=== PATIENT | female | born 1965 | race Caucasian/White ===

== ENCOUNTER 2016-08-09 22:31 | Emergency (ER) | payer SELFPAY ==
[~2016-08-09] VITALS: Ht 154.9 cm
[2016-08-09 22:31] VITALS: Ht 154.9 cm
--- OUTSIDE RECORDS SUMMARY | 2016-08-09 22:36 | XMS REPORT | Continuity Of Care Document ---
Author Author [facility] Organization [facility] Address [address] [place] [address] Phone Care Team Providers Care Molder Machine Tender Name Role Phone RED KIDD, CLAUDIA Burt AT Unavailable ALVIN KIDD, MAURY Millan PP Results Lab Results Visit/Account #[id number] (December 05, 2012 6:16am - December 05, 2012 9:51am) Test Result Reported Date/Time COMPLETE BLOOD COUNT WITH DIFF WHITE BLOOD COUNT(4.0-11.0 10E3/UL) 7.3 10E3/UL December 05, 2012 7:02am RED BLOOD COUNT(3.80-5.20 10E6/UL) 3.85 10E6/UL December 05, 2012 7:02am HEMOGLOBIN(12.0-16.0 G/DL) 11.6 G/DL December 05, 2012 7:02am HEMATOCRIT(36.0-48.0 %) 35.0 % December 05, 2012 7:02am MEAN CORPUSCULAR VOLUME(80.0-100.0 FL) 90.9 FL December 05, 2012 7:02am MEAN CORPUSCULAR HEMOGLOBIN(27.0-34.0 PG) 30.1 PG December 05, 2012 7:02am MEAN CORPUSCULAR HGB CONC(33.0-37.0 G/DL) 33.1 G/DL December 05, 2012 7:02am RED CELL DISTRIBUTION WIDTH(11.0-15.0 %) 13.4 % December 05, 2012 7:02am 777-3: PLATELET COUNT(130-400 10E3/UL) 203 10E3/UL December 05, 2012 7:02am MEAN PLATELET VOLUME(7.4-11.0 FL) 9.1 FL December 05, 2012 7:02am NEUTROPHILS % (AUTO)(40-70 %) 63 % December 05, 2012 7:02am LYMPHOCYTES % (AUTO)(15-45 %) 30 % December 05, 2012 7:02am MONOCYTES % (AUTO)(2-10 %) 5 % December 05, 2012 7:02am EOSINOPHILS % (AUTO)(0-6 %) 2 % December 05, 2012 7:02am BASOPHILS % (AUTO)(0-1 %) 1 % December 05, 2012 7:02am IMMATURE GRANS % (AUTO)(0-0 %) 0 % December 05, 2012 7:02am NUCLEATED RBCS (AUTO)(0-0 %) 0 % December 05, 2012 7:02am NEUTROPHILS # (AUTO)(2.5-7.5 10E3/UL) 4.6 10E3/UL December 05, 2012 7:02am LYMPHOCYTES # (AUTO)(1.0-4.0 10E3/UL) 2.2 10E3/UL December 05, 2012 7:02am MONOCYTES # (AUTO)(0.2-0.8 10E3/UL) 0.3 10E3/UL December 05, 2012 7:02am EOSINOPHILS # (AUTO)(0.0-0.4 10E3/UL) 0.1 10E3/UL December 05, 2012 7:02am BASOPHILS # (AUTO)(0.0-0.2 10E3/UL) 0.0 10E3/UL December 05, 2012 7:02am IMMATURE GRANS # (AUTO)(0.0-0.0 10E3/UL) 0.0 10E3/UL December 05, 2012 7:02am DIFF TYPE AUTOMATED December 05, 2012 7:02am 52018-3: PROTHROMBIN TIME WITH INR PROTHROMBIN TIME(12.6-14.9 SEC) 11.9 SEC December 05, 2012 7:06am 34463-9: INR 0.90 Result Comments: INR reference interval applies to patients on anticoagulant therapy. Suggested INR therapeutic range for oral anticoagulant therapy: (Stabilized anticoagulated patients) Routine Therapy: 2.0 to 3.0 Recurrent Myocardial Infarction: 2.5 to 3.5 Mechanical Prosthetic Valves: 2.5 to 3.5 December 05, 2012 7:06am PARTIAL THROMBOPLASTIN TIME PARTIAL THROMBOPLASTIN TIME(22.2-37.4 SEC) 29.3 SEC December 05, 2012 7:07am D-DIMER D-DIMER(0.00-0.49 UG/ML) 1.13 UG/ML December 05, 2012 7:14am COMPLETE METABOLIC PROFILE GLUCOSE(70-110 MG/DL) 194 MG/DL December 05, 2012 7:18am BLOOD UREA NITROGEN(6-20 MG/DL) 10 MG/DL December 05, 2012 7:18am CREATININE(0.50-1.20 MG/DL) 0.47 MG/DL December 05, 2012 7:18am EST GLOMERULAR FILTRATION RATE(Greater than or equal to 60) Greater than or equal to 60 Result Comments: If the patient is of -[place] descent/extraction multiply the eGFR value by 1.212 to obtain the actual eGFR. >=60 mg/dL Normal 30-59 mg/dL Moderate Kidney Disease 15-29 mg/dL Severe Kidney Disease <15 mg/dL Kidney Failure If the patient is of -[place] descent/extraction multiply the eGFR value by 1.212 to obtain the actual eGFR. >=60 mg/dL Normal 30-59 mg/dL Moderate Kidney Disease 15-29 mg/dL Severe Kidney Disease <15 mg/dL Kidney Failure December 05, 2012 7:18am BUN CREATININE RATIO(10.0-20.0 RATIO) 21.3 RATIO December 05, 2012 7:18am SODIUM(135-145 MMOL/L) 140 MMOL/L December 05, 2012 7:18am POTASSIUM(3.6-5.0 MMOL/L) 3.3 MMOL/L December 05, 2012 7:18am CHLORIDE(101-111 MMOL/L) 104 MMOL/L December 05, 2012 7:18am CO2(21-31 MMOL/L) 24.0 MMOL/L December 05, 2012 7:18am ANION GAP(8-18) 15 December 05, 2012 7:18am OSMO CALCULATED(270.0-290.0) 283.7 December 05, 2012 7:18am CALCIUM(8.5-10.5 MG/DL) 9.4 MG/DL December 05, 2012 7:18am BILIRUBIN,TOTAL(0.1-1.2 MG/DL) 0.3 MG/DL December 05, 2012 7:18am ALKALINE PHOSPHATASE(42-121 U/L) 151 U/L December 05, 2012 7:18am ASPARTATE AMINO TRANSFERASE(10-42 U/L) 32 U/L December 05, 2012 7:18am ALANINE AMINOTRANSFERASE(10-60 U/L) 22 U/L December 05, 2012 7:18am TOTAL PROTEIN(6.4-8.2 G/DL) 7.6 G/DL December 05, 2012 7:18am ALBUMIN(3.5-5.5 G/DL) 4.1 G/DL December 05, 2012 7:18am GLOBULIN(2.4-3.6) 3.5 December 05, 2012 7:18am ALBUMIN/GLOBULIN RATIO(0.9-1.8 RATIO) 1.2 RATIO December 05, 2012 7:18am TOTAL CPK TOTAL CPK(22-269 U/L) 172 U/L December 05, 2012 7:18am CPK MB CPK MB(0.6-6.3 NG/ML) 1.0 NG/ML December 05, 2012 7:18am CARDIAC TROPONIN I CARDIAC TROPONIN I(0.01-0.04 NG/ML) 0.01 NG/ML Result Comments: REFERENCE RANGES: NEGATIVE </=0.04 NG/ML INTERMEDIATE 0.05-0.49 NG/ML POSITIVE >/=0.50 NG/ML December 05, 2012 7:18am Less than 0.01 NG/ML Result Comments: REFERENCE RANGES: NEGATIVE </=0.04 NG/ML INTERMEDIATE 0.05-0.49 NG/ML POSITIVE >/=0.50 NG/ML December 05, 2012 9:15am LIPASE LIPASE(22-51 U/L) 18 U/L December 05, 2012 7:38am Result Procedures Visit/Account #[id number] (December 05, 2012 6:16am - December 05, 2012 9:51am) Department: DIAGNOSTIC IMAGING [ Report: Diagnostic Imaging Report ] Diagnostic Imaging Report Dictated By: REFUGIO HARRIS MD Signed By: REFUGIO HARRIS MD Method of Transportation: A Pertinent Items in Place: N What ER Room is the patient in?: 23 Currently : N Reason for exam: r/o [address] [address] ~Department of Radiology~ Patient: CLARISA HIDALGO Unit/MR#: [id number] : 1965 Age: 47 Sex: F Report#: [id number] Room#: Location: ED Order Dr: CLAUDIA MOON MD Tech: Chris Beltran Attn: Dr: Signed CAT SCAN Dt/Tm of Exam: 12/05/12 0719 Exam Description: CT ANGIO CHEST Reason for Exam: r/o pe cc: CLAUDIA MOON MD, RHONDA D MD [facility] ~ CT PULMONARY ANGIOGRAM COMPARISON: None. Axial images were obtained through the chest from just below the apices to just above posterior costophrenic angles. Chest wall appears unremarkable. There is mild to moderate degenerative change of the spine. No pleural fluid or pneumothorax is evident. Aorta appears unremarkable. No aneurysm or dissection is evident. No mediastinal or hilar adenopathy or mass is identified. There are diffusely increased bronchovascular markings in both lungs suggesting vascular congestive change. No consolidation or mass is evident. Attention is directed to pulmonary arteries. Main pulmonary artery and right and left main pulmonary arteries appear normal. No filling defect is noted to suggest central pulmonary embolus. The peripheral pulmonary arteries appear unremarkable with no peripheral pulmonary embolus evident on the current study. Imaging is somewhat limited by patient's body habitus and poor inspiratory effort. IMPRESSION: Diffusely increased bronchovascular pattern markings accentuated by incomplete inspiration. Mild vascular congestion is likely. Negative for mass or consolidation. Apices and posterior lung bases are incompletely visualized. Negative for evidence of pulmonary emboli. [id number] Transcribed By: HARDIK 12/05/12 1001 Dictated By: REFUGIO HARRIS MD Signed By: REFUGIO HARRIS MD 12/05/12 1241 Diagnostic Imaging Report Dictated By: REFUGIO HARRIS MD Signed By: REFUGIO HARRIS MD Method of Transportation: A Pertinent Items in Place: N What ER Room is the patient in?: 23 Currently : N Reason for exam: Chest pain [address] [address] ~Department of Radiology~ Patient: CLARISA HIDALGO Unit/MR#: [id number] : 1965 Age: 47 Sex: F Report#: [id number] Room#: Location: ED Order Dr: CLAUDIA MOON MD Tech: Ava Pritchard Attn: Dr: Signed DIAGNOSTIC XRAY Dt/Tm of Exam: 12/05/12 0631 Exam Description: CR CHEST 1V Reason for Exam: Chest pain cc: CLAUDIA MOON MD, RHONDA D MD [facility] ~ PORTABLE CHEST COMPARISON: Exam is compared with 12/04/12. Upright AP portable view of the chest was obtained. Cardiac monitoring leads are in place. Heart is of normal size. Mediastinum and mikey are unremarkable. There is mild elevation of the right diaphragm. No pleural fluid or pneumothorax is evident. No infiltrate or mass is seen. No significant change is noted from previous imaging. IMPRESSION: Mild elevation of right diaphragm. No active process seen in the cardiopulmonary system. Stable imaging from 12/04/12. [id number] Transcribed By: HARDIK 12/05/12 1253 Dictated By: REFUGIO HARRIS MD Signed By: REFUGIO HARRIS MD 12/05/12 1756 Imaging is somewhat limited by patient's body habitus and poor inspiratory effort. IMPRESSION: Diffusely increased bronchovascular pattern markings accentuated by incomplete inspiration. Mild vascular congestion is likely. Negative for mass or consolidation. Apices and posterior lung bases are incompletely visualized. Negative for evidence of pulmonary emboli. [id number] Transcribed By: HARDIK 12/05/12 1001 Dictated By: REFUGIO HARRIS MD Signed By: REFUGIO HARRIS MD 12/05/12 1241 Allergies and Adverse Reactions Allergies and Adverse Reactions Patient Unit Number: [id number] Agent Type Reaction Severity Status Date KETOROLAC TROMETHAMINE Drug Allergy Unknown Unknown Active December 02, 2012 LISINOPRIL Drug Allergy Unknown Unknown Active December 02, 2012 MORPHINE Drug Allergy Unknown Unknown Active December 04, 2012 MEPERIDINE Drug Allergy Unknown Mild Active June 09, 2007 Problem List Problem List Visit/Account #[id number] (December 05, 2012 6:16am - December 05, 2012 9:51am) Active Problems: Code/Condition Comments Documented Start Date Documented Resolved Date 786.50 CHEST PAIN NOS December 05, 2012 789.09 ABDOMINAL PAIN, OTHER SPECIFIED SITE December 05, 2012 Vital Signs Vital Signs Visit/Account #[id number] (December 05, 2012 6:16am - December 05, 2012 9:51am) Label First Result Last Result 8310-5: Body Temperature 98.7 degF December 05, 2012 6:15am 8310-5: Fahrenheit Body Temperature 98.3 [degF] December 05, 2012 9:47am 8480-6: BP Systolic 182/ mmHg December 05, 2012 6:15am 81/ mm[Hg] December 05, 2012 9:46am 8867-4: Heart Rate 101 /min December 05, 2012 6:15am 93 /min December 05, 2012 9:46am 9279-1: Respiratory Rate 20 /min December 05, 2012 6:15am 15 /min December 05, 2012 9:46am Unmapped Query Mnemonic (RESP.SAT) Saturation 95 % December 05, 2012 6:15am 95 % December 05, 2012 6:15am Ordered Medications Ordered Medications Visit/Account #[id number] (December 05, 2012 6:16am - December 05, 2012 9:51am) Medication Dose Route Sig/Schedule Precondition/Indication Comments/ Instructions NDC NITROQUICK(NITROGLYCERIN) 0.4 MG/TAB TAB 0.4 MG SL: SUBLINGUAL NOW: NOW Rx Order Comments: Order placed as verified: Dose Warnings differ from food order expediter Dose Warnings differ from food order expediter Label Comments: *DOSE 1* Do NOT give until approved by physician. Give every 3-5 minutes if needed for ongoing symptons. Max of 3 doses. Do NOT give unless: Heart rate 50-100 beats per minute SBP is greater than 90 mmHg and/or no lower than 20 mmHg below baseline Do NOT give if: inferior OH or RV infarction recent phosphodesterase inhibito use (e.g. Viagra, Levitra, Revatio) within last 24 hours or Cialis within last 48 hours. NITROQUICK (NITROGLYCERIN): [id number] NITROQUICK(NITROGLYCERIN) 0.4 MG/TAB TAB 0.4 MG SL: SUBLINGUAL NOW: NOW Rx Order Comments: Order placed as verified: Allergies/Duplicates/Interactions differ from food order expediter Dose Warnings differ from food order expediter Label Comments: *DOSE 2* Give every 3-5 minutes if needed for ongoing symptons. Max of 3 doses. Do NOT give unless: Heart rate 50-100 beats per minute SBP is greater than 90 mmHg and/or no lower than 20 mmHg below baseline Do NOT give if: inferior OH or RV infarction recent phosphodesterase inhibito use (e.g. Viagra, Levitra, Revatio) within last 24 hours or Cialis within last 48 hours. NITROQUICK (NITROGLYCERIN): [id number] NITROQUICK(NITROGLYCERIN) 0.4 MG/TAB TAB 0.4 MG SL: SUBLINGUAL NOW: NOW Rx Order Comments: Order placed as verified: Allergies/Duplicates/Interactions differ from food order expediter Dose Warnings differ from food order expediter Label Comments: *DOSE 3* Give every 3-5 minutes if needed for ongoing symptons. Max of 3 doses. Do NOT give unless: Heart rate 50-100 beats per minute SBP is greater than 90 mmHg and/or no lower than 20 mmHg below baseline Do NOT give if: inferior [place] or RV infarction recent phosphodesterase inhibito use (e.g. Viagra, Levitra, Revatio) within last 24 hours or Cialis within last 48 hours. NITROQUICK (NITROGLYCERIN): [id number] MAALOX PLUS(AL HYDROX/MG HYDROX/SIMETH) 30 ML LIQUID 30 ML PO: ORAL NOW: NOW Rx Order Comments: Order placed as verified: Allergies/Duplicates/Interactions differ from food order expediter Dose Warnings differ from food order expediter Label Comments: GI COCKTAIL MAALOX PLUS (AL HYDROX/MG HYDROX/SIMETH): [id number] ELIX(BELLADONNA ALK/PHENOBARBITAL) 10 ML/32.4 MG ELIXIR 10 ML PO: ORAL NOW: NOW Rx Order Comments: Order placed as verified: Allergies/Duplicates/Interactions differ from food order expediter Dose Warnings differ from food order expediter Label Comments: GI COCKTAIL ELIX (BELLADONNA ALK/PHENOBARBITAL): [id number] XYLOCAINE 2% VISC(LIDOCAINE HCL) 400 MG/20 ML SOLUTION 200 MG PO: ORAL NOW: NOW Rx Order Comments: Order placed as verified: Allergies/Duplicates/Interactions differ from food order expediter Dose Warnings differ from food order expediter Label Comments: GI COCKTAIL XYLOCAINE 2% VISC (LIDOCAINE HCL): [id number] PROTONIX(PANTOPRAZOLE SOD) 40 MG TAB 40 MG PO: ORAL NOW: NOW Rx Order Comments: Order placed as verified: Allergies/Duplicates/Interactions differ from food order expediter Dose Warnings differ from food order expediter PROTONIX (PANTOPRAZOLE SOD): [id number] History Of Encounters Encounters Visit/Account #[id number] (December 05, 2012 6:16am - December 05, 2012 9:51am) No reports exist, or have been identified for inclusion with this encounter.
--- OUTSIDE RECORDS SUMMARY | 2016-08-09 22:36 | XMS REPORT | Continuity of Care Document ---
Author Author [facility] Organization [facility] Address Unknown Phone Unavailable Care Team Providers Care Health Specialist Name Role Phone Emily López PP [phone] Insurance Providers Payer Name Policy Type Covered Libertarian Covered Libertarian Id Relationship Subscriber Subscriber Id DAVIS [id number] BRYANNA HIDALGO [id number] [facility] [id number] SELF / SAME PATIENT CLARISA HIDALGO [id number] Advance Directives Directive Response Recorded Date/Time Type: Living Will 02/09/09 2:20am Problems Medical Problem Onset Date Abdominal pain Chest pain Chronic abdominal pain Diabetic gastroparesis Frontal headache Headache Social History History Response Recorded Date/Time 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, 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 02/09/09 2:20am Exposure to Occupational hazards: N 02/09 2:20am Allergies, Adverse Reactions, Alerts Allergen Type Severity Reaction Last Updated Ketorolac Allergy Unknown 12/03/12 Meperidine Allergy Unknown 12/03/12 Morphine AdvReac Mild VOMITING 12/03/12 Lisinopril Allergy Unknown 12/03/12 Medications Medication Dose Route Sig Days/Qty REGLAN 10MG10 MG/TAB (Metoclopramide) 10 MG PO BID PRILOSEC 20MG20 MG (Omeprazole) 20 MG PO QD KEPPRA [id number] MG (levETIRAcetam) 750 MG PO BID CARDURA 2MG2 MG (Doxazosin) 1 MG PO BID LOPRESSOR 550 MG/TAB (Metoprolol Tartrate) 50 MG PO BID ZYRTEC 10MG (3) 10 DAILY PIQQTPN51 MG (Atorvastatin) 20 MG PO HS [id number] MG/CAP (Gabapentin) 400 MG PO QID EFFEXOR-XR150 MG (Venlafaxine XR) 150 MG PO DAILY NOVLOG (Insulin Aspart) 4 U SC Q 1HR SYNTHROID0.125 MG/T (Levothyroxine) 0.125 MG PO DAILY ANAFRANIL 25MG25 MG (clomiPRAMINE) 75 MG PO HS [id number] MG (Topiramate) 200 MG PO QD Vital Signs Vital Reading Collection Date/Time Result Blood Pressure 12/03/12 3:38am 155/70 Ortho 12/03/12 3:38am SI Temperature 12/03/12 2:02am 97.7 Source 12/03/12 2:02am O Respirations 12/03/12 3:38am 18 Pulse 12/03/12 3:38am 80 Type 12/03/12 2:02am PO SPO2 (%) 12/03/12 3:38am 96 Height(cm) 12/03/12 2:02am 154.9 Height(ft) 12/03/12 2:02am 5 Height(in) 12/03/12 2:02am 01 Weight(Kg) 12/03/12 2:02am 99.5 Weight(lbs) 12/03/12 2:02am 219.0 Blood Pressure 12/01/12 9:16am 149/70 Ortho 12/01/12 9:16am DE PAZ Temperature 12/01/12 4:02am 99.1 Source 12/01/12 4:02am O Respirations 12/01/12 4:02am 16 Pulse 12/01/12 4:02am 84 Type 12/01/12 4:02am PO SPO2 (%) 12/01/12 4:02am 94 Height(cm) 11/13/12 3:19am 154.9 Height(ft) 12/01/12 4:02am 5 Height(in) 12/01/12 4:02am 1 Weight(Kg) 12/01/12 4:02am 100.0 Weight(lbs) 12/01/12 4:02am 220.0 Blood Pressure 11/13/12 5:16am 141/93 Ortho 11/13/12 5:16am DE PAZ Temperature 11/13/12 3:19am 97.0 Source 11/13/12 3:19am O Respirations 11/13/12 5:16am 16 Pulse 11/13/12 5:16am 85 Type 11/13/12 5:16am DYN SPO2 (%) 11/13/12 5:16am 95 Height(cm) 11/13/12 3:19am 154.9 Height(ft) 11/13/12 3:19am 5 Height(in) 11/13/12 3:19am 1 Weight(Kg) 11/13/12 3:19am 100.0 Weight(lbs) 11/13/12 3:19am 220.0 Blood Pressure 11/10/12 9:37pm 141/76 Ortho 11/10/12 9:37pm SI Temperature 11/10/12 9:37pm 98.6 Source 11/10/12 9:37pm O Respirations 11/10/12 9:37pm 14 Pulse 11/10/12 9:37pm 87 Type 11/10/12 9:37pm PO SPO2 (%) 11/10/12 9:37pm 95 Height(cm) 11/10/12 8:10pm 154.9 Height(ft) 11/10/12 8:10pm 5 Height(in) 11/10/12 8:10pm 01 Weight(Kg) 11/10/12 8:10pm 100.0 Weight(lbs) 11/10/12 8:10pm 220.0 Blood Pressure 11/10/12 8:47am 136/63 Ortho 11/10/12 8:47am DE PAZ Temperature 11/10/12 8:47am 97.8 Source 11/10/12 8:47am O Respirations 11/10/12 8:47am 16 Pulse 11/10/12 8:47am 92 Type 11/10/12 8:47am PO SPO2 (%) 11/10/12 8:47am 95 Height(cm) 11/10/12 7:01am 154.9 Height(ft) 11/10/12 7:01am 5 Height(in) 11/10/12 7:01am 1 Weight(Kg) 11/10/12 7:01am 100.0 Weight(lbs) 11/10/12 7:01am 220.0 Blood Pressure 11/09/12 8:33pm 115/67 Ortho 11/09/12 8:33pm SI Temperature 11/09/12 8:33pm 98.7 Source 11/09/12 8:33pm O Respirations 11/09/12 8:33pm 16 Pulse 11/09/12 8:33pm 80 Type 11/09/12 8:33pm PO SPO2 (%) 11/09/12 8:33pm 95 Height(cm) 11/09/12 8:33pm 154.9 Height(ft) 11/01/12 7:14am 5 Height(in) 11/09/12 8:33pm 61 Weight(Kg) 11/09/12 8:33pm 100.0 Weight(lbs) 11/09/12 8:33pm 220.0 Results Test Date Result Interp. Ref. Range Cholesterol Level 08/23/08 189 mg/dL 120 - 200 Cholesterol Risk Factor 08/23/08 4.7 - HDL Cholesterol 08/23/08 40 mg/dL - LDL Cholesterol, Calculated 08/23/08 77 mg/dL - Triglycerides Level 08/23/08 362 mg/dL - INR International Normalized Ratio 08/23/08 1.1 0 - 2.0 Partial Thromboplastin Time - [place] 08/23/08 23.9 SECONDS 18.0 - 35.0 Prothrombin Time 08/23/08 10.8 SECONDS 9.8 - 12.2 Heparin Anti-Xa Act, Unfractionated 08/23/08 0.16 IU/mL L 0.35 - 0.70 Troponin I 08/23/08 < 0.012 ng/mL 0.000 - 0.034 Hemoglobin A1c 08/23/08 6.6 % - B-Type Natriuretic Peptide 08/24/08 5 pg/ mL 0 - 100 CSF Neisseria meningitidis A/Y Ag 04/07/12 NEGATIVE - Group B Streptococcus Antigen 04/07/12 NEGATIVE - N. meningitidis B/E.coli K1 Ag 04/07/12 NEGATIVE - Neisseria meningitidis C/W135 Ag 04/07/12 NEGATIVE - Streptococcus pneumoniae Antigen 04/07/12 NEGATIVE - CSF Appearance 04/07/12 CLEAR - CSF Cell Count Tube # 04/07/12 TUBE #1 - CSF Color 04/07/12 OTHER - CSF Glucose 04/07/12 109 mg/dL H 40 - 70 CSF Mononuclear WBCs % 04/07/12 67 % L 70 - 100 CSF Polynuclear WBCs (%) 04/07/12 33 % H 0 - 6 CSF RBC 04/07/12 1200 /mm3 H 0 - 0 CSF Total Protein 04/07/12 63.2 mg/dL H 12 - 60 CSF WBC 04/07/12 4 MM3 0 - 10 Carbamazepine (Tegretol) Level 05/27/12 12.7 ug/mL H 4.0 - 12.0 Influenza Type A Antigen 06/03/12 NEGATIVE - Influenza Type B Antigen 06/03/12 NEGATIVE - Band Neutrophils % 06/03/12 14 % H 0 - 10 Differential Pathologist's Review 06/03/12 NO - Differential Total Cells Counted 06/03/12 100 - Eosinophils % (Manual) 06/03/12 2 % 0 - 4 Lymphocytes 06/03/12 22 % 20.0 - 51.0 Monocytes % (Manual) 06/03/12 3.0 % 1.7 - 9.3 Neutrophils % (Manual) 06/03/12 59 % 42.0 - 75.2 Platelet Estimate 06/03/12 NORMAL NORMAL - Magnesium Level 06/03/12 1.6 mg/dL 1.6 - 2.3 Creatine Kinase 08/09/12 35 U/L 30 - 135 Creatine Kinase MB 08/09/12 < 0.30 ng/mL 0.00 - 2.37 Acetone, Qualitative 09/03/12 NEGATIVE - Whole Blood Glucose 09/14/12 120 mg/dL H 70 - 110 Urine Mucus 10/27/12 PRESENT H NOT PRESENT - Stool Occult Blood 10/29/12 NEGATIVE NEGATIVE - Levetiracetam (Keppra) Level 11/10/12 XXX - Prolactin 11/10/12 XXX - Rapid Troponin I 11/13/12 <0.02 ng/mL 0.00 - 0.08 Lactic Acid Level 11/13/12 2.10 mmol/L 0.7 - 2.1 C-Reactive Protein 12/01/12 2.4 mg/dL H 0.0 - 0.9 Urine Appearance 12/01/12 HAZY - Urine Bacteria 12/01/12 PRESENT H NOT PRESENT - Urine Bilirubin 12/01/12 NEGATIVE NEGATIVE - Urine Blood 12/01/12 NEGATIVE NEGATIVE - Urine Collection Type 12/01/12 CLEAN CATCH - Urine Color 12/01/12 YELLOW - Urine Epithelial Cells 12/01/12 MANY / lpf H FEW - Urine Glucose 12/01/12 NEGATIVE mg/dL - Urine Ketones 12/01/12 NEGATIVE NEGATIVE - Urine Leukocyte Esterase 12/01/12 NEGATIVE NEGATIVE - Urine Nitrate 12/01/12 NEGATIVE NEGATIVE - Urine Protein 12/01/12 NEGATIVE mg/dL NEGATIVE - Urine RBC 12/01/12 0-3 /hpf 0 - 3 Urine Specific [place] 12/01/12 1.010 1.001 - 1.035 Urine Total Volume 12/01/12 12 mL - Urine Urobilinogen 12/01/12 NORMAL NORMAL - Urine WBC 12/01/12 4-8 /hpf H 0 - 3 Urine pH 12/01/12 7.0 5.0 - 8.0 Basophils # 12/03/12 0.1 0.0 - 0.2 Basophils % 12/03/12 0.7 % 0.0 - 2.0 Eosinophils # 12/03/12 0.2 0.0 - 0.7 Eosinophils % 12/03/12 1.6 % 0 - 4.0 Granulocytes # 12/03/12 7.0 H 1.4 - 6.5 Granulocytes (%) 12/03/12 66.2 % 42.2 - 75.2 Hematocrit 12/03/12 33.2 % L 37.0 - 47.0 Hemoglobin 12/03/12 11.2 g/dl L 12.5 - 16.0 Lymphocytes # 12/03/12 3.0 1.2 - 3.4 Lymphocytes % 12/03/12 28.0 % 20.0 - 51.0 Mean Corpuscular Hemoglobin 12/03/12 31 pg 27.0 - 31.0 Mean Corpuscular Hemoglobin Concent 12/03/12 34 g/dl 33.0 - 37.0 Mean Corpuscular Volume 12/03/12 91 fl 80.0 - 100.0 Mean Platelet Volume 12/03/12 7.9 fl 7.4 - 10.4 Monocytes # 12/03/12 0.4 0.1 - 0.6 Monocytes % 12/03/12 3.5 % 1.7 - 9.3 Platelet Count 12/03/12 216 K/mm3 130 - 400 Red Blood Count 12/03/12 3.63 M/mm3 L 4.10 - 5.30 Red Cell Distribution Width 12/03/12 13.4 % 11.5 - 14.5 White Blood Count 12/03/12 10.7 K/mm3 4.8 - 10.8 Alanine Aminotransferase (ALT/SGPT) 12/03/12 25 U/L 9 - 52 Albumin 12/03/12 4.2 gm/dL 3.5 - 5.0 Alkaline Phosphatase 12/03/12 171 U/L H 50 - 136 Anion Gap 12/03/12 17 mmol/L H 7 - 16 Aspartate Amino Transf (AST/SGOT) 12/03/12 48 U/L H 15 - 37 Blood Urea Nitrogen 12/03/12 11 mg/dL 7 - 18 Calcium Adjusted for Albumin 12/03/12 8.5 mg/dL 8.4 - 10.2 Calcium Level 12/03/12 8.7 mg/dL L 8.8 - 10.5 Carbon Dioxide Level 12/03/12 20 mmol/L L 21 - 32 Chloride Level 12/03/12 105 mmol/L 98 - 107 Creatinine 12/03/12 0.56 mg/dL 0.52 - 1.04 Estimated GFR () 12/03/12 142 - Estimated GFR (Non- 12/03/12 117 - Glucose Level 12/03/12 154 mg/dL H 74 - 106 Lipase 12/03/12 43 U/L 23 - 300 Potassium Level 12/03/12 4.6 mmol/L 3.4 - 5.0 Serum Total Protein 12/03/12 7.6 gm/dL 6.4 - 8.2 Sodium Level 12/03/12 142 mmol/L 136 - 145 Total Bilirubin 12/03/12 0.5 mg/dL 0.0 - 1.0 Procedures Procedure Code Date UPPER GI ENDOSCOPY, BIOPSY 68015 [facility] En[facility] 11/09/12 10:20pm
--- OUTSIDE RECORDS SUMMARY | 2016-08-09 22:36 | XMS REPORT | Continuity Of Care Document ---
Author Author [facility] Organization [facility] Address [address] [place] [address] Phone Care Team Providers Care Seo Consultant Name Role Phone AMY KIDD, ADWOA Rich AT Results Lab Results Visit/Account #[id number] (December 02, 2012 5:04am - December 02, 2012 7:37am) Test Result Reported Date/Time COMPLETE BLOOD COUNT WITH DIFF WHITE BLOOD COUNT(4.0-11.0 10E3/UL) 8.7 10E3/UL December 02, 2012 6:15am RED BLOOD COUNT(3.80-5.20 10E6/UL) 3.91 10E6/UL December 02, 2012 6:15am HEMOGLOBIN(12.0-16.0 G/DL) 11.9 G/DL December 02, 2012 6:15am HEMATOCRIT(36.0-48.0 %) 35.7 % December 02, 2012 6:15am MEAN CORPUSCULAR VOLUME(80.0-100.0 FL) 91.3 FL December 02, 2012 6:15am MEAN CORPUSCULAR HEMOGLOBIN(27.0-34.0 PG) 30.4 PG December 02, 2012 6:15am MEAN CORPUSCULAR HGB CONC(33.0-37.0 G/DL) 33.3 G/DL December 02, 2012 6:15am RED CELL DISTRIBUTION WIDTH(11.0-15.0 %) 13.2 % December 02, 2012 6:15am 777-3: PLATELET COUNT(130-400 10E3/UL) 214 10E3/UL December 02, 2012 6:15am MEAN PLATELET VOLUME(7.4-11.0 FL) 8.9 FL December 02, 2012 6:15am NEUTROPHILS % (AUTO)(40-70 %) 60 % December 02, 2012 6:15am LYMPHOCYTES % (AUTO)(15-45 %) 32 % December 02, 2012 6:15am MONOCYTES % (AUTO)(2-10 %) 5 % December 02, 2012 6:15am EOSINOPHILS % (AUTO)(0-6 %) 2 % December 02, 2012 6:15am BASOPHILS % (AUTO)(0-1 %) 1 % December 02, 2012 6:15am IMMATURE GRANS % (AUTO)(0-0 %) 1 % December 02, 2012 6:15am NUCLEATED RBCS (AUTO)(0-0 %) 0 % December 02, 2012 6:15am NEUTROPHILS # (AUTO)(2.5-7.5 10E3/UL) 5.2 10E3/UL December 02, 2012 6:15am LYMPHOCYTES # (AUTO)(1.0-4.0 10E3/UL) 2.8 10E3/UL December 02, 2012 6:15am MONOCYTES # (AUTO)(0.2-0.8 10E3/UL) 0.4 10E3/UL December 02, 2012 6:15am EOSINOPHILS # (AUTO)(0.0-0.4 10E3/UL) 0.2 10E3/UL December 02, 2012 6:15am BASOPHILS # (AUTO)(0.0-0.2 10E3/UL) 0.1 10E3/UL December 02, 2012 6:15am IMMATURE GRANS # (AUTO)(0.0-0.0 10E3/UL) 0.0 10E3/UL December 02, 2012 6:15am DIFF TYPE AUTOMATED December 02, 2012 6:15am 96379-9: PROTHROMBIN TIME WITH INR PROTHROMBIN TIME(12.6-14.9 SEC) 12.2 SEC December 02, 2012 6:31am 50485-7: INR 0.93 Result Comments: INR reference interval applies to patients on anticoagulant therapy. Suggested INR therapeutic range for oral anticoagulant therapy: (Stabilized anticoagulated patients) Routine Therapy: 2.0 to 3.0 Recurrent Myocardial Infarction: 2.5 to 3.5 Mechanical Prosthetic Valves: 2.5 to 3.5 December 02, 2012 6:31am PARTIAL THROMBOPLASTIN TIME PARTIAL THROMBOPLASTIN TIME(22.2-37.4 SEC) 30.3 SEC December 02, 2012 6:32am UA WITH SCREEN FOR CULTURE COLOR,URINE YELLOW December 02, 2012 7:00am CLARITY,URINE CLEAR December 02, 2012 7:00am GLUCOSE, URINE(NEGATIVE MG/DL) NEGATIVE MG/DL December 02, 2012 7:00am URINE BILIRUBIN(NEGATIVE) NEGATIVE December 02, 2012 7:00am KETONES,URINE(NEGATIVE MG/DL) NEGATIVE MG/DL December 02, 2012 7:00am URINE SPECIFIC GRAVITY(1.001-1.035) 1.020 December 02, 2012 7:00am URINE BLOOD(NEGATIVE) NEGATIVE December 02, 2012 7:00am URINE PH(5.0-9.0) 7.0 December 02, 2012 7:00am URINE PROTEIN(Less than 20 MG/DL) NEGATIVE MG/DL December 02, 2012 7:00am URINE UROBILINOGEN(0.2-1.0 MG/DL) 0.2 MG/DL December 02, 2012 7:00am URINE NITRITE(NEGATIVE) NEGATIVE December 02, 2012 7:00am LEUKOCYTE ESTERASE ,URINE(NEGATIVE) TRACE December 02, 2012 7:00am URINE CULTURE TO FOLLOW December 02, 2012 7:00am URINE MICROSCOPIC REQUIRED YES December 02, 2012 7:00am URINE WBCS(/HPF) 8-12 /HPF December 02, 2012 7:14am URINE RBCS(/HPF) NONE SEEN /HPF December 02, 2012 7:14am URINE EPITHELIAL CELLS(/HPF) 4-7 /HPF December 02, 2012 7:14am BACTERIA,URINE(/HPF) NONE SEEN /HPF December 02, 2012 7:14am URINE CRYSTALS(/HPF) NONE SEEN /HPF December 02, 2012 7:03am URINE CASTS(/LPF) NONE SEEN /LPF December 02, 2012 7:03am URINE COMMENTS NONE December 02, 2012 7:03am COMPLETE METABOLIC PROFILE GLUCOSE(70-110 MG/DL) 123 MG/DL Result Comments: SPECIMEN IS SLIGHTLY TO MODERATELY LIPEMIC;RESULTS MAY BE AFFECTED December 02, 2012 6:36am BLOOD UREA NITROGEN(6-20 MG/DL) 13 MG/DL December 02, 2012 6:36am CREATININE(0.50-1.20 MG/DL) 0.54 MG/DL December 02, 2012 6:36am EST GLOMERULAR FILTRATION RATE(Greater than or equal to 60) Greater than or equal to 60 Result Comments: If the patient is of -[place] descent/extraction multiply the eGFR value by 1.212 to obtain the actual eGFR. >=60 mg/dL Normal 30-59 mg/dL Moderate Kidney Disease 15-29 mg/dL Severe Kidney Disease <15 mg/dL Kidney Failure December 02, 2012 6:36am BUN CREATININE RATIO(10.0-20.0 RATIO) 24.1 RATIO December 02, 2012 6:36am SODIUM(135-145 MMOL/L) 138 MMOL/L December 02, 2012 6:36am POTASSIUM(3.6-5.0 MMOL/L) 3.6 MMOL/L December 02, 2012 6:36am CHLORIDE(101-111 MMOL/L) 105 MMOL/L December 02, 2012 6:36am CO2(21-31 MMOL/L) 22.0 MMOL/L December 02, 2012 6:36am ANION GAP(8-18) 15 December 02, 2012 6:36am OSMO CALCULATED(270.0-290.0) 277.1 December 02, 2012 6:36am CALCIUM(8.5-10.5 MG/DL) 9.2 MG/DL December 02, 2012 6:36am BILIRUBIN,TOTAL(0.1-1.2 MG/DL) 0.3 MG/DL December 02, 2012 6:36am ALKALINE PHOSPHATASE(42-121 U/L) 140 U/L December 02, 2012 6:36am ASPARTATE AMINO TRANSFERASE(10-42 U/L) 28 U/L December 02, 2012 6:36am ALANINE AMINOTRANSFERASE(10-60 U/L) 21 U/L December 02, 2012 6:36am TOTAL PROTEIN(6.4-8.2 G/DL) 7.7 G/DL December 02, 2012 6:36am ALBUMIN(3.5-5.5 G/DL) 4.6 G/DL December 02, 2012 6:36am GLOBULIN(2.4-3.6) 3.1 December 02, 2012 6:36am ALBUMIN/GLOBULIN RATIO(0.9-1.8 RATIO) 1.5 RATIO December 02, 2012 6:36am LIPASE LIPASE(22-51 U/L) 22 U/L December 02, 2012 6:36am SERUM HCG, QUALITATIVE SERUM HCG, QUALITATIVE(NEGATIVE) NEGATIVE December 02, 2012 6:35am Microbiology Results Visit/Account #[id number] (December 02, 2012 5:04am - December 02, 2012 7:37am) Procedure Result Specimen #: [id number] URINE CULTURE Result Instance On December 05, 2012 7:52am Source: URINE Organism: MIXED UROGENITAL ORGANISMS COLONY COUNT >100,000 Result Procedures Visit/Account #[id number] (December 02, 2012 5:04am - December 02, 2012 7:37am) Department: DIAGNOSTIC IMAGING [ Report: Diagnostic Imaging Report ] Diagnostic Imaging Report Dictated By: WHITNEY LEIJA MD Signed By: WHITNEY LEIJA MD Method of Transportation: A Pertinent Items in Place: N What ER Room is the patient in?: 23 Currently : N Reason for exam: abd pain;colonoscopy 3 days ago with biopsies taken [address] [id number] ~Department of Radiology~ Patient: CLARISA HIDALGO Unit/MR#: [id number] : 1965 Age: 47 Sex: F Report#: [id number] Room#: Location: ED Order Dr: ADWOA REYES MD Tech: William Gonzalez Attn: Dr: Signed DIAGNOSTIC XRAY Dt/Tm of Exam: 12/02/12 Exam Description: CR ABDOMEN 2V Reason for Exam: abd pain;colonoscopy 3 days ago with biopsies taken cc: ADWOA REYES MD [facility] ~ EXAM: Two-view abdominal series. LOCATION OF DICTATION: [facility]. HISTORY: Abdominal pain/rectal bleeding/colonoscopy 3 days earlier. COMPARISON: None. FINDINGS: Clips are evident in the right upper quadrant consistent with a prior cholecystectomy. No organomegaly or pathological calcification is evident. Small amount of contrast material is seen within the colon. The intestinal gas pattern is nonspecific, suggesting neither mechanical obstruction nor ileus. No intramural, intrahepatic or free intraperitoneal air is evident. Pacer is present. IMPRESSION: 1. The intestinal gas pattern is nonspecific, suggesting neither mechanical obstruction nor ileus. 2. Status post cholecystectomy. Transcribed By: SPEECHQ 12/02/12 0754 Dictated By: WHITNEY LEIJA MD Signed By: WHITNEY LEIJA MD 12/02/12 0807 Allergies and Adverse Reactions Allergies and Adverse Reactions Patient Unit Number: [id number] Agent Type Reaction Severity Status Date KETOROLAC TROMETHAMINE Drug Allergy Unknown Unknown Active December 02, 2012 LISINOPRIL Drug Allergy Unknown Unknown Active December 02, 2012 MORPHINE Drug Allergy Unknown Unknown Active December 04, 2012 MEPERIDINE Drug Allergy Unknown Mild Active June 09, 2007 Problem List Problem List Visit/Account #[id number] (December 02, 2012 5:04am - December 02, 2012 7:37am) Active Problems: Code/Condition Comments Documented Start Date Documented Resolved Date 789.09 ABDOMINAL PAIN, OTHER SPECIFIED SITE December 02, 2012 V45.89 POSTSURGICAL STATES NEC December 02, 2012 Vital Signs Vital Signs Visit/Account #[id number] (December 02, 2012 5:04am - December 02, 2012 7:37am) Label First Result Last Result 3141-9: Weight Measured 220 lbs December 02, 2012 5:03am 99.296874 kg December 02, 2012 5:03am 8310-5: Body Temperature 97.3 degF December 02, 2012 5:03am 8310-5: Fahrenheit Body Temperature 98.2 [degF] December 02, 2012 7:33am 8480-6: BP Systolic 177/ mmHg December 02, 2012 5:03am 104/ mm[Hg] December 02, 2012 7:33am 8867-4: Heart Rate 89 /min December 02, 2012 5:03am 89 /min December 02, 2012 7:33am 9279-1: Respiratory Rate 22 /min December 02, 2012 5:03am 20 /min December 02, 2012 7:33am Unmapped Query Mnemonic (RESP.SAT) Saturation 97 % December 02, 2012 5:03am 97 % December 02, 2012 5:03am Home Medications Home Medications Visit/Account #[id number] (December 02, 2012 5:04am - December 02, 2012 7:37am) Medication Dose Route Sig/Schedule Precondition/Indication Comments/ Instructions NDC ATIVAN(LORazepam) 0.5 MG TABLET 0.5 MG PO: ORAL TID: 3 TIMES A DAY ATIVAN (LORazepam): [id number] Ordered Medications Ordered Medications Visit/Account #[id number] (December 02, 2012 5:04am - December 02, 2012 7:37am) Medication Dose Route Sig/Schedule Precondition/Indication Comments/ Instructions NDC ATIVAN INJ(LORazepam) 2 MG/ML INJECTION 1 MG IV: INTRAVEN NOW: NOW Rx Order Comments: Order placed as verified: Dose Warnings differ from computerized mill mill recorder Dose Warnings differ from computerized mill mill recorder Label Comments: *DILUTE WITH EQUAL VOLUME OF NORMAL SALINE PRIOR TO IV ADMINISTRATION MAY INCREASE FALL RISK ATIVAN INJ (LORazepam): [id number] MORPHINE SULFATE 10 MG/ML INJECTION 8 MG IV: INTRAVEN NOW: NOW Rx Order Comments: Order placed as verified: Dose Warnings differ from computerized mill mill recorder Dose Warnings differ from computerized mill mill recorder Label Comments: MAY INCREASE FALL RISK (MORPHINE SULFATE): [id number] ZOFRAN ODT(ONDansetron HCL) 4 MG TAB 4 MG PO: ORAL NOW: NOW Rx Order Comments: Order placed as verified: Dose Warnings differ from computerized mill mill recorder Dose Warnings differ from computerized mill mill recorder Label Comments: MAY INCREASE FALL RISK ZOFRAN ODT (ONDansetron HCL): [id number] PHENERGAN(PROMETHazine HCL) 25 MG TAB 25 MG PO: ORAL NOW: NOW Rx Order Comments: Order placed as verified: Dose Warnings differ from computerized mill mill recorder Dose Warnings differ from computerized mill mill recorder Label Comments: MAY INCREASE FALL RISK PHENERGAN (PROMETHazine HCL): [id number] DILAUDID(HYDROmorphone HCL) 2 MG/ML INJECTION 1 MG IM: INTRAMUSC NOW: NOW Rx Order Comments: Order placed as verified: Dose Warnings differ from computerized mill mill recorder Dose Warnings differ from computerized mill mill recorder Label Comments: MAY INCREASE FALL RISK DILAUDID (HYDROmorphone HCL): [id number] ATIVAN INJ(LORazepam) 2 MG/ML INJECTION 1 MG IM: INTRAMUSC NOW: NOW Rx Order Comments: Order placed as verified: Dose Warnings differ from computerized mill mill recorder Dose Warnings differ from computerized mill mill recorder Label Comments: *DILUTE WITH EQUAL VOLUME OF NORMAL SALINE PRIOR TO IV ADMINISTRATION MAY INCREASE FALL RISK ATIVAN INJ (LORazepam): [id number] History Of Encounters Encounters Visit/Account #[id number] (December 02, 2012 5:04am - December 02, 2012 7:37am) No reports exist, or have been identified for inclusion with this encounter.
--- OUTSIDE RECORDS SUMMARY | 2016-08-09 22:37 | XMS REPORT | Continuity Of Care Document ---
Author Author [facility] Organization [facility] Address [address] [place] [address] Phone Care Team Providers Care Tooth Cutter Clutch Name Role Phone RED KIDD, CLAUDIA Burt AT MAURY ESQUIVEL MD PP Results Lab Results Visit/Account #[id number] (June 25, 2013 10:40pm - June 26, 2013 1: 25am) Test Result Reported Date/Time COMPLETE BLOOD COUNT WITH DIFF WHITE BLOOD COUNT(4.0-11.0 10E3/UL) 9.6 10E3/UL June 26, 2013 12:29am RED BLOOD COUNT(3.80-5.20 10E6/UL) 3.83 10E6/UL June 26, 2013 12:29am HEMOGLOBIN(12.0-16.0 G/DL) 11.8 G/DL June 26, 2013 12:29am HEMATOCRIT(36.0-48.0 %) 34.2 % June 26, 2013 12:29am MEAN CORPUSCULAR VOLUME(80.0-100.0 FL) 89.3 FL June 26, 2013 12:29am MEAN CORPUSCULAR HEMOGLOBIN(27.0-34.0 PG) 30.8 PG June 26, 2013 12:29am MEAN CORPUSCULAR HGB CONC(33.0-37.0 G/DL) 34.5 G/DL June 26, 2013 12:29am RED CELL DISTRIBUTION WIDTH(11.0-15.0 %) 13.8 % June 26, 2013 12:29am 777-3: PLATELET COUNT(130-400 10E3/UL) 203 10E3/UL June 26, 2013 12:29am MEAN PLATELET VOLUME(7.4-11.0 FL) 9.1 FL June 26, 2013 12:29am NEUTROPHILS % (AUTO)(40-70 %) 64 % June 26, 2013 12:29am LYMPHOCYTES % (AUTO)(15-45 %) 29 % June 26, 2013 12:29am MONOCYTES % (AUTO)(2-10 %) 4 % June 26, 2013 12:29am EOSINOPHILS % (AUTO)(0-6 %) 2 % June 26, 2013 12:29am BASOPHILS % (AUTO)(0-1 %) 0 % June 26, 2013 12:29am IMMATURE GRANS % (AUTO)(0-0 %) 1 % June 26, 2013 12:29am NUCLEATED RBCS (AUTO)(0-0 %) 0 % June 26, 2013 12:29am NEUTROPHILS # (AUTO)(2.5-7.5 10E3/UL) 6.1 10E3/UL June 26, 2013 12:29am LYMPHOCYTES # (AUTO)(1.0-4.0 10E3/UL) 2.8 10E3/UL June 26, 2013 12:29am MONOCYTES # (AUTO)(0.2-0.8 10E3/UL) 0.4 10E3/UL June 26, 2013 12:29am EOSINOPHILS # (AUTO)(0.0-0.4 10E3/UL) 0.2 10E3/UL June 26, 2013 12:29am BASOPHILS # (AUTO)(0.0-0.2 10E3/UL) 0.0 10E3/UL June 26, 2013 12:29am IMMATURE GRANS # (AUTO)(0.0-0.0 10E3/UL) 0.1 10E3/UL June 26, 2013 12:29am DIFF TYPE AUTOMATED June 26, 2013 12:29am COMPLETE METABOLIC PROFILE GLUCOSE(70-110 MG/DL) 148 MG/DL June 26, 2013 12:49am BLOOD UREA NITROGEN(6-20 MG/DL) 10 MG/DL June 26, 2013 12:49am CREATININE(0.50-1.20 MG/DL) 0.50 MG/DL June 26, 2013 12:49am EST GLOMERULAR FILTRATION RATE(Greater than or equal to 60) Greater than or equal to 60 Result Comments: If the patient is of -[place] descent/extraction multiply the eGFR value by 1.212 to obtain the actual eGFR. >=60 mg/dL Normal 30-59 mg/dL Moderate Kidney Disease 15-29 mg/dL Severe Kidney Disease <15 mg/dL Kidney Failure June 26, 2013 12:49am BUN CREATININE RATIO(10.0-20.0 RATIO) 20.0 RATIO June 26, 2013 12:49am SODIUM(135-145 MMOL/L) 134 MMOL/L June 26, 2013 12:49am POTASSIUM(3.6-5.0 MMOL/L) 3.2 MMOL/L June 26, 2013 12:49am CHLORIDE(101-111 MMOL/L) 96 MMOL/L June 26, 2013 12:49am CO2(21-31 MMOL/L) 28.0 MMOL/L June 26, 2013 12:49am ANION GAP(8-18) 13 June 26, 2013 12:49am OSMO CALCULATED(270.0-290.0) 270.0 June 26, 2013 12:49am CALCIUM(8.5-10.5 MG/DL) 8.8 MG/DL June 26, 2013 12:49am BILIRUBIN,TOTAL(0.1-1.2 MG/DL) 0.5 MG/DL June 26, 2013 12:49am ALKALINE PHOSPHATASE(42-121 U/L) 170 U/L June 26, 2013 12:49am ASPARTATE AMINO TRANSFERASE(10-42 U/L) 26 U/L June 26, 2013 12:49am ALANINE AMINOTRANSFERASE(10-60 U/L) 26 U/L June 26, 2013 12:49am TOTAL PROTEIN(6.4-8.2 G/DL) 7.8 G/DL June 26, 2013 12:49am ALBUMIN(3.5-5.5 G/DL) 3.5 G/DL June 26, 2013 12:49am GLOBULIN(2.4-3.6) 4.3 June 26, 2013 12:49am ALBUMIN/GLOBULIN RATIO(0.9-1.8 RATIO) 0.8 RATIO June 26, 2013 12:49am LIPASE LIPASE(22-51 U/L) 19 U/L June 26, 2013 12:49am Allergies and Adverse Reactions Allergies and Adverse Reactions Patient Unit Number: [id number] Agent Type Reaction Severity Status Date KETOROLAC TROMETHAMINE Drug Allergy Unknown Unknown Active December 02, 2012 LISINOPRIL Drug Allergy Unknown Unknown Active December 02, 2012 MORPHINE Drug Allergy Unknown Unknown Active December 04, 2012 MEPERIDINE Drug Allergy Unknown Mild Active June 09, 2007 Vital Signs Vital Signs Visit/Account #[id number] (June 25, 2013 10:40pm - June 26, 2013 1: 25am) Label First Result Last Result 3141-9: Weight Measured 231 lbs June 25, 2013 10:33pm 104.834642 kg June 25, 2013 10:33pm 8310-5: Body Temperature 99.1 degF June 25, 2013 10:33pm 8310-5: Fahrenheit Body Temperature 98.2 [degF] June 26, 2013 1:15am 8480-6: BP Systolic 159/ mmHg June 25, 2013 10:33pm 70/ mm[Hg] June 26, 2013 1:15am 8867-4: Heart Rate 93 /min June 25, 2013 10:33pm 68 /min June 26, 2013 1:15am 9279-1: Respiratory Rate 20 /min June 25, 2013 10:33pm 18 /min June 26, 2013 1:15am Unmapped Query Mnemonic (RESP.SAT) Saturation 96 % June 25, 2013 10:33pm 96 % June 25, 2013 10:33pm Ordered Medications Ordered Medications Visit/Account #[id number] (June 25, 2013 10:40pm - June 26, 2013 1: 25am) Medication Dose Route Sig/Schedule Precondition/Indication Comments/ Instructions NDC DILAUDID(HYDROmorphone HCL) 2 MG/ML INJECTION 0.5 MG IV: INTRAVEN NOW: NOW Rx Order Comments: Order placed as verified: Dose Warnings differ from order analyst Dose Warnings differ from order analyst Label Comments: MAY INCREASE FALL RISK DILAUDID (HYDROmorphone HCL): [id number] ZOFRAN INJ(ONDansetron HCL) 4 MG/2 ML INJECTION 4 MG .ROUTE: Route .[facility] ZOFRAN INJ (ONDansetron HCL): [id number] History Of Encounters Encounters Visit/Account #[id number] (June 25, 2013 10:40pm - June 26, 2013 1: 25am) No reports exist, or have been identified for inclusion with this encounter.
--- OUTSIDE RECORDS SUMMARY | 2016-08-09 22:37 | XMS REPORT | Continuity Of Care Document ---
Author Author [facility] Organization [facility] Address [address] [place] [address] Phone Care Team Providers [facility] Director Name Role Phone Yana ESQUIVEL MD PP Alok COTO MD AT Results Lab Results Visit/Account #[id number] (July 25, 2015 7:14am - July 28, 2015 10:30am) Test Result Date/Time POCGL POCGL(70-110 MG/DL) 185 MG/DL 2015 7:27am 157 MG/DL 2015 10:20am 120 MG/DL 2015 5:40pm 129 MG/DL 2015 7:59pm 86 MG/DL July 25, 2015 6:04am 76 MG/DL July 25, 2015 10:32am 214 MG/DL July 25, 2015 5:32pm 268 MG/DL July 25, 2015 7:37pm 64 MG/DL July 26, 2015 6:15am 73 MG/DL July 26, 2015 6:31am 134 MG/DL July 26, 2015 7:58am 179 MG/DL July 26, 2015 9:40am 177 MG/DL July 26, 2015 11:10am 121 MG/DL July 26, 2015 4:30pm 81 MG/DL July 26, 2015 8:58pm 62 MG/DL July 27, 2015 3:26am 92 MG/DL July 27, 2015 3:52am 148 MG/DL July 27, 2015 5:51am 141 MG/DL July 27, 2015 11:48am 114 MG/DL July 27, 2015 2:38pm 140 MG/DL July 27, 2015 5:14pm 327 MG/DL July 27, 2015 9:23pm 345 MG/DL July 27, 2015 10:35pm 281 MG/DL July 27, 2015 11:38pm 116 MG/DL July 28, 2015 5:28am COMPLETE BLOOD COUNT WHITE BLOOD COUNT(4.0-11.0 10E3/UL) 9.0 10E3/UL July 25, 2015 8:21am 9.3 10E3/UL July 26, 2015 5:57am RED BLOOD COUNT(4.00-5.20 10E6/UL) 3.87 10E6/UL July 25, 2015 8:21am 4.25 10E6/UL July 26, 2015 5:57am HEMOGLOBIN(12.0-16.0 G/DL) 11.8 G/DL July 25, 2015 8:21am 12.7 G/DL July 26, 2015 5:57am HEMATOCRIT(36.0-46.0 %) 34.8 % July 25, 2015 8:21am 37.4 % July 26, 2015 5:57am MEAN CORPUSCULAR VOLUME(82.0-100.0 FL) 89.9 FL July 25, 2015 8:21am 88.0 FL July 26, 2015 5:57am 68093-8: MEAN CORPUSCULAR HEMOGLOBIN(26.0-34.0 PG) 30.5 PG July 25, 2015 8:21am 29.9 PG July 26, 2015 5:57am MEAN CORPUSCULAR HGB CONC(31.5-36.5 G/DL) 33.9 G/DL July 25, 2015 8:21am 34.0 G/DL July 26, 2015 5:57am RED CELL DISTRIBUTION WIDTH(11.5-14.5 %) 14.2 % July 25, 2015 8:21am 14.1 % July 26, 2015 5:57am 777-3: PLATELET COUNT(150-450 10E3/UL) 148 10E3/UL July 25, 2015 8:21am 149 10E3/UL July 26, 2015 5:57am MEAN PLATELET VOLUME(8.2-12.4 FL) 9.6 FL July 25, 2015 8:21am 10.2 FL July 26, 2015 5:57am NUCLEATED RBCS (AUTO)(0-0 %) 0 % July 25, 2015 8:21am 0 % July 26, 2015 5:57am HEMOGLOBIN HEMOGLOBIN(12.0-16.0 G/DL) 11.8 G/DL July 25, 2015 6:16pm 52309-1: PROTHROMBIN TIME WITH INR PROTHROMBIN TIME(12.1-14.0 SEC) 13.3 SEC July 25, 2015 8:20am 20827-0: INR 1.05 Result Comments: INR reference interval applies to patients on anticoagulant therapy. Suggested INR therapeutic range for oral anticoagulant therapy: (Stabilized anticoagulated patients) Routine Therapy: 2.0 to 3.0 Recurrent Myocardial Infarction: 2.5 to 3.5 Mechanical Prosthetic Valves: 2.5 to 3.5 July 25, 2015 8:20am PARTIAL THROMBOPLASTIN TIME PARTIAL THROMBOPLASTIN TIME(22.2-37.4 SEC) 33.3 SEC July 25, 2015 8:20am 62836-1: COMPLETE METABOLIC PROFILE GLUCOSE(70-110 MG/DL) 91 MG/DL July 25, 2015 8:21am BLOOD UREA NITROGEN(6-20 MG/DL) 8 MG/DL July 25, 2015 8:21am CREATININE(0.50-1.20 MG/DL) 0.51 MG/DL July 25, 2015 8:21am 93163-9: EST GLOMERULAR FILTRATION RATE(Greater than or equal to 60) Greater than or equal to 60 Result Comments: If the patient is of -[place] descent/extraction multiply the eGFR value by 1.212 to obtain the actual eGFR. >=60 mg/dL Normal 30-59 mg/dL Moderate Kidney Disease 15-29 mg/dL Severe Kidney Disease <15 mg/dL Kidney Failure July 25, 2015 8:21am BUN CREATININE RATIO(10.0-20.0 RATIO) 16.0 RATIO July 25, 2015 8:21am SODIUM(135-145 MMOL/L) 139 MMOL/L July 25, 2015 8:21am POTASSIUM(3.6-5.0 MMOL/L) 3.3 MMOL/L July 25, 2015 8:21am CHLORIDE(101-111 MMOL/L) 102 MMOL/L July 25, 2015 8:21am 8-9: CO2(21-31 MMOL/L) 28 MMOL/L July 25, 2015 8:21am ANION GAP(8-18) 12 July 25, 2015 8:21am OSMO CALCULATED(270.0-290.0) 275.5 July 25, 2015 8:21am CALCIUM(8.5-10.5 MG/DL) 8.5 MG/DL July 25, 2015 8:21am BILIRUBIN,TOTAL(0.1-1.2 MG/DL) 0.5 MG/DL July 25, 2015 8:21am ALKALINE PHOSPHATASE(42-121 IU/L) 150 IU/L July 25, 2015 8:21am ASPARTATE AMINO TRANSFERASE(10-42 IU/L) 33 IU/L July 25, 2015 8:21am ALANINE AMINOTRANSFERASE(10-60 IU/L) 20 IU/L July 25, 2015 8:21am TOTAL PROTEIN(6.4-8.2 G/DL) 6.8 G/DL July 25, 2015 8:21am ALBUMIN(3.5-5.5 G/DL) 3.7 G/DL July 25, 2015 8:21am GLOBULIN(2.4-3.6) 3.1 July 25, 2015 8:21am ALBUMIN/GLOBULIN RATIO(0.9-1.8 RATIO) 1.2 RATIO July 25, 2015 8:21am 12705-0: GLYCOHEMOGLOBIN A1C 4548-4: %A1C(4.6-6.2 %) 11.4 % 2015 3:56pm Microbiology Results Visit/Account #[id number] (July 25, 2015 7:14am - July 28, 2015 10:30am) Procedure Result TISSUE CULTURE TISSUE CULTURE Result Instance On July 25, 2015 11:40am Source: LIVER Special Result Comments: No growth Allergies and Adverse Reactions Allergies and Adverse Reactions Patient Unit Number: [id number] Agent Type Reaction Severity Status KETOROLAC TROMETHAMINE Drug Allergy Unknown Unknown Active LISINOPRIL Drug Allergy Unknown Unknown Active MEPERIDINE Drug Allergy Unknown Mild Active Problem List Problem List Visit/Account #[id number] (July 25, 2015 7:14am - July 28, 2015 10:30am) Acute Problems: Code/Condition Comments Documented Start Date Documented Resolved Date Code (s) Abdominal pain ICD10: R10.9 Abdominal pain ICD9: 789.00 Abdominal pain SNOMED: 12189151 Abdominal pain Liver mass ICD10: K76.9 Liver mass ICD9: 573.9 Liver mass SNOMED: 882383418 Liver mass Plan of Care Plan Of Care Visit/Account #[id number] (July 25, 2015 7:14am - July 28, 2015 10:30am) Patient Instructions Instructions Polyethylene Glycol 3350 Oxycodone Levofloxacin Hydrocodone Vital Signs Vital Signs Visit/Account #[id number] (July 25, 2015 7:14am - July 28, 2015 10:30am) Sign First Result Last Result Code(s) Blood Pressure 143/ 76 mm[Hg] On 2015 2:08am 122/ 67 mm[Hg] On July 28, 2015 9:55am 8480-6 BP Systolic Heart Rate/Pulse Pulse Rate (adult): 74 /min On 2015 2:08am Pulse Rate (adult): 99 /min On July 28, 2015 9:55am 8867-4 Heart Rate 8893-0 Pulse rate Respiratory Rate Respiratory Rate: 16 /min On 2015 2:08am Respiratory Rate: 18 /min On July 28, 2015 9:55am 9279-1 Respiratory rate Temperature in Fahrenheit Temperature (Fahrenheit): 97.3 [degF] On 2015 2:08am Temperature (Fahrenheit): 98.6 [degF] On July 28, 2015 9:55am 8310-5 Body Temperature Functional Status Functional and Cognitive Status No Functional Status Data Medications Home Medications - Medications that the patient was taking prior to arrival at the hospital Visit/Account #[id number] (July 25, 2015 7:14am - July 28, 2015 10:30am) Medication Route Sig/Schedule Precondition/Indication Comments/Instructions Codes ATIVAN(LORazepam) 0.5 MG TABLET Dose: 0.5 MG ORAL 3 TIMES A DAY Lorazepam 0.5 MG Oral Tablet (RxNorm): 063847 ATIVAN (LORazepam) NDC: 44358083880 NEURONTIN(GABAPENTIN) 400 MG CAPSULE Dose: 400 MG ORAL DAILY AT [facility] gabapentin 400 MG Oral Capsule [Neurontin] (RxNorm): 113747 NEURONTIN (GABAPENTIN) NDC: 24719671990 REGLAN(METOCLOPRAMIDE HCL) 10 MG TABLET Dose: 10 MG ORAL TWICE A DAY Metoclopramide 10 MG Oral Tablet [Reglan] (RxNorm): 735423 REGLAN (METOCLOPRAMIDE HCL) NDC: 82534891158 ZYRTEC(CETIRIZINE HCL) 10 MG CAPSULE Dose: 10 MG ORAL DAILY ZYRTEC (CETIRIZINE HCL) NDC: 33489557409 KEPPRA(LevETIRAcetam) 750 MG TAB Dose: 750 MG ORAL TWICE A DAY Levetiracetam 750 MG Oral Tablet [Keppra] (RxNorm): 574610 KEPPRA (LevETIRAcetam) NDC: 61214517475 LIPITOR(ATORVASTATIN) 80 MG TABLET Dose: 80 MG ORAL AT BEDTIME atorvastatin 80 MG Oral Tablet [Lipitor] (RxNorm): 115426 LIPITOR (ATORVASTATIN) NDC: 92899620465 SYNTHROID(LEVOTHYROXINE SODIUM) 0.125 MG TABLET Dose: 0.125 MG ORAL DAILY Levothyroxine Sodium 0.125 MG Oral Tablet [Synthroid] (RxNorm): 093498 SYNTHROID (LEVOTHYROXINE SODIUM) NDC: 94048261174 TOPAMAX(TOPIRAMATE) 100 MG TABLET Dose: 200 MG ORAL AT BEDTIME topiramate 100 MG Oral Tablet [Topamax] (RxNorm): 649825 TOPAMAX (TOPIRAMATE) NDC: 82143251047 CARDURA(DOXAZOSIN MESYLATE) 2 MG TABLET Dose: 1 MG ORAL TWICE A DAY Doxazosin 2 MG Oral Tablet [Cardura] (RxNorm): 886863 CARDURA (DOXAZOSIN MESYLATE) NDC: 27177696313 LEXAPRO(ESCITALOPRAM OXALATE) 20 MG TAB Dose: 20 MG ORAL DAILY Escitalopram 20 MG Oral Tablet [Lexapro] (RxNorm): 307400 LEXAPRO (ESCITALOPRAM OXALATE) NDC: 02273543813 IMDUR ER(ISOSORBIDE MONONITRATE) 30 MG TAB Dose: 30 MG ORAL DAILY 24 HR Isosorbide Mononitrate 30 MG Extended Release Oral Tablet (RxNorm): 154260 IMDUR ER (ISOSORBIDE MONONITRATE) NDC: 44425419320 PROTONIX(PANTOPRAZOLE) 40 MG TAB Dose: 40 MG ORAL DAILY pantoprazole 40 MG Delayed Release Oral Tablet [Protonix] (RxNorm): 364067 PROTONIX (PANTOPRAZOLE) NDC: 70484376263 REMERON(MIRTAZAPINE) 30 MG TABLET Dose: 30 MG ORAL AT BEDTIME Mirtazapine 30 MG Oral Tablet [Remeron] (RxNorm): 504873 REMERON (MIRTAZAPINE) NDC: 64508841593 BUSPAR(BusPIRone) 5 MG TAB Dose: 10 MG ORAL TWICE A DAY buspirone hydrochloride 5 MG Oral Tablet (RxNorm): 013638 BUSPAR (BusPIRone) NDC: 98012740460 NOVOLOG(INSULIN ASPART) 1000 UNIT/10 ML INJECTION Dose: 0 ML SUBCUTANEOUSLY .PER.PUMP Rx Instructions: patient reports 4.7-4.95 units per hour, and that she has a 15/1 carb ratio with meals Insulin, Aspart, Human 100 UNT/ML Injectable Solution [NovoLog] (RxNorm): 554344 NOVOLOG (INSULIN ASPART) NDC: 68678533165 NEURONTIN(GABAPENTIN) 400 MG CAPSULE Dose: 400 MG ORAL DAILY AT LUNCH gabapentin 400 MG Oral Capsule [Neurontin] (RxNorm): 831392 NEURONTIN (GABAPENTIN) NDC: 54983263310 NEURONTIN(GABAPENTIN) 400 MG CAPSULE Dose: 800 MG ORAL AT BEDTIME gabapentin 400 MG Oral Capsule [Neurontin] (RxNorm): 212196 NEURONTIN (GABAPENTIN) NDC: 87924787949 ATIVAN(LORazepam) 0.5 MG TABLET Dose: 0.5 MG ORAL TWICE A DAY prn Lorazepam 0.5 MG Oral Tablet [Ativan] (RxNorm): 853083 ATIVAN (LORazepam) NDC: 64162060592 LOPRESSOR(METOPROLOL TARTRATE) 50 MG TABLET Dose: 50 MG ORAL TWICE A DAY Metoprolol Tartrate 50 MG Oral Tablet [Lopressor] (RxNorm): 261701 LOPRESSOR (METOPROLOL TARTRATE) NDC: 49852612139 Inpatient/Ordered Medications - Medications administered during hospital visit Visit/Account #[id number] (July 25, 2015 7:14am - July 28, 2015 10:30am) Medication Route Sig/Schedule Precondition/Indication Comments/Instructions Codes LIPITOR(ATORVASTATIN) 80 MG TAB Dose: 80 MG ORAL AT BEDTIME Label Comments: TERATOGENIC. WOMEN SHOULD NOT HANDLE OR CRUSH. atorvastatin 80 MG Oral Tablet [Lipitor] (RxNorm): 361113 LIPITOR (ATORVASTATIN) NDC: 89766906645 BUSPAR(BusPIRone) 5 MG TAB Dose: 5 MG ORAL TWICE A DAY Label Comments: MAY INCREASE FALL RISK buspirone hydrochloride 5 MG Oral Tablet (RxNorm): 047325 BUSPAR (BusPIRone) NDC: 04558578341 CARDURA(DOXAZOSIN MESYLATE) 2 MG TAB Dose: 2 MG ORAL TWICE A DAY Label Comments: MAY INCREASE FALL RISK Doxazosin 2 MG Oral Tablet (RxNorm): 630209 CARDURA (DOXAZOSIN MESYLATE) NDC: 30026990289 LEXAPRO(ESCITALOPRAM OXALATE) 20 MG TAB Dose: 20 MG ORAL DAILY Label Comments: MAY INCREASE FALL RISK Escitalopram 20 MG Oral Tablet [Lexapro] (RxNorm): 310282 LEXAPRO (ESCITALOPRAM OXALATE) NDC: 27958929085 NEURONTIN(GABAPENTIN) 400 MG CAP Dose: 400 MG ORAL DAILY Label Comments: MAY INCREASE FALL RISK gabapentin 400 MG Oral Capsule [Neurontin] (RxNorm): 319092 NEURONTIN (GABAPENTIN) NDC: 07799769758 IMDUR-ER(ISOSORBIDE MONONITRATE) 30 MG TAB Dose: 30 MG ORAL DAILY 24 HR Isosorbide Mononitrate 30 MG Extended Release Oral Tablet (RxNorm): 166520 IMDUR-ER (ISOSORBIDE MONONITRATE) NDC: 09826669006 KEPPRA(LevETIRAcetam) 750 MG TAB Dose: 750 MG ORAL TWICE A DAY Label Comments: DO NOT CRUSH MAY INCREASE FALL RISK Levetiracetam 750 MG Oral Tablet [Keppra] (RxNorm): 191870 KEPPRA (LevETIRAcetam) NDC: 17443135236 SYNTHROID(LEVOTHYROXINE SODIUM) 0.125 MG TAB Dose: 0.125 MG ORAL DAILY@07 Label Comments: 0.125 ZF=739 MCG Levothyroxine Sodium 0.125 MG Oral Tablet (RxNorm): 714774 SYNTHROID (LEVOTHYROXINE SODIUM) NDC: 80330923980 REMERON(MIRTAZAPINE) 30 MG TAB Dose: 30 MG ORAL AT BEDTIME Label Comments: MAY INCREASE FALL RISK Mirtazapine 30 MG Oral Tablet (RxNorm): 034837 REMERON (MIRTAZAPINE) NDC: 67103440462 PROTONIX(PANTOPRAZOLE SOD) 40 MG TAB Dose: 40 MG ORAL 60 MIN BEFORE BKFST pantoprazole 40 MG Delayed Release Oral Tablet [Protonix] (RxNorm): 737552 PROTONIX (PANTOPRAZOLE SOD) NDC: 53096326975 TOPAMAX(TOPIRAMATE) 100 MG TAB Dose: 200 MG ORAL AT BEDTIME Label Comments: MAY INCREASE FALL RISK topiramate 100 MG Oral Tablet (RxNorm): 850352 TOPAMAX (TOPIRAMATE) NDC: 12905801587 CLARITIN(LORATADINE) 10 MG TAB Dose: 10 MG ORAL DAILY Label Comments: SUBST FOR ZYRTEC Loratadine 10 MG Oral Tablet (RxNorm): 404141 CLARITIN (LORATADINE) NDC: 76132366135 IV Medication Carriers: LR(LACTATED RINGER'S) 1000 ML INJECTION Dose: 1000 ML INTRAVEN .Q10H (Rate: 100 MLS/HR Duration: 10 HR) Carriers: Calcium Chloride 0.0014 MEQ/ML / Potassium Chloride 0.004 MEQ/ML / Sodium Chloride 0.103 MEQ (RxNorm): 390585 LR (LACTATED RINGER'S) NDC: 04183468463 NORCO 7.5-325(HYDROcodone BIT/ACETAMINOPHEN) 1 TAB TAB Dose: 0 TAB ORAL Q6H PRN Reason: MODERATE PAIN Label Comments: Do not exceed 4000 mg of total acetaminophen per 24 hours Special Dose Instructions: 1-2 TABS Acetaminophen 325 MG / Hydrocodone Bitartrate 7.5 MG Oral Tablet (RxNorm): 323924 NORCO 7.5-325 (HYDROcodone BIT/ACETAMINOPHEN) NDC: 02515534008 DILAUDID(HYDROmorphone HCL) 2 MG/ML INJECTION Dose: 0 ML INTRAVEN Q1H PRN Reason: SEVERE PAIN Special Dose Instructions: 0.5-1 MG 1 ML Hydromorphone Hydrochloride 2 MG/ML Prefilled Syringe (RxNorm): 217693 DILAUDID (HYDROmorphone HCL) NDC: 49153301517 ZOFRAN INJ(ONDANSETRON HCL) 4 MG/2 ML INJECTION Dose: 2 ML INTRAVEN Q6H PRN Reason: NAUSEA/VOMITING Ondansetron 2 MG/ML Injectable Solution (RxNorm): 548365 ZOFRAN INJ (ONDANSETRON HCL) NDC: 41949095881 BENADRYL INJ(DiphenhydrAMINE HCL) 50 MG/ML INJECTION Dose: 0.5 ML INTRAVEN Q6H PRN Reason: ITCHING Diphenhydramine Hydrochloride 50 MG/ML Injectable Solution (RxNorm): 1857574 BENADRYL INJ (DiphenhydrAMINE HCL) NDC: 56354957154 COLACE(DOCUSATE SODIUM) 100 MG CAP Dose: 100 MG ORAL TWICE A DAY Docusate Sodium 100 MG Oral Capsule (RxNorm): 1455609 COLACE (DOCUSATE SODIUM) NDC: 84952426588 NovoLOG(INSULIN ASPART) 1000 UNIT/10 ML INJECTION Dose: 0 ML SUBCUTANEOUSLY 3 TIMES DAILY WITH MEALS Special Dose Instructions: 1 UNIT PER 15 GRAMS OF CARBS CORRECTION/SENSITIVITY FACTOR: Insulin, Aspart, Human 100 UNT/ML Injectable Solution [NovoLog] (RxNorm): 155266 NovoLOG (INSULIN ASPART) NDC: 26495150139 NovoLOG(INSULIN ASPART) 1000 UNIT/10 ML INJECTION Dose: 0 ML SUBCUTANEOUSLY NEEDED PRN Reason: RESERVOIR CHANGE Label Comments: Document amount refilled in reservoir on the insulin pump assessment.<rapid acting insulin> Special Dose Instructions: RESERVOIR CHANGE Insulin, Aspart, Human 100 UNT/ML Injectable Solution [NovoLog] (RxNorm): 816944 NovoLOG (INSULIN ASPART) NDC: 20521240533 DILAUDID(HYDROmorphone HCL) 2 MG/ML INJECTION Dose: 2 MG Route .STK-MED Label Comments: MAY INCREASE FALL RISK 1 ML Hydromorphone Hydrochloride 2 MG/ML Prefilled Syringe (RxNorm): 698679 DILAUDID (HYDROmorphone HCL) NDC: 89609052956 REGLAN(METOCLOPRAMIDE HCL) 10 MG TAB Dose: 10 MG ORAL TWICE A DAY Label Comments: MAY INCREASE FALL RISK Metoclopramide 10 MG Oral Tablet (RxNorm): 103549 REGLAN (METOCLOPRAMIDE HCL) NDC: 00364616126 DILAUDID(HYDROmorphone HCL) 2 MG/ML INJECTION Dose: 0 ML INTRAVEN Q2H PRN Reason: SEVERE PAIN Label Comments: MAY INCREASE FALL RISK Special Dose Instructions: 1-2 MG 1 ML Hydromorphone Hydrochloride 2 MG/ML Prefilled Syringe (RxNorm): 982609 DILAUDID (HYDROmorphone HCL) NDC: 78372585634 OxyCONTIN(OxyCODONE HCL) 20 MG TAB Dose: 20 MG ORAL TWICE A DAY Label Comments: MAY INCREASE FALL RISK 12 HR Oxycodone Hydrochloride 20 MG Extended Release Oral Tablet [Oxycontin] ( RxNorm): 1945190 OxyCONTIN (OxyCODONE HCL) NDC: 30131277149 LASIX INJ(FUROSEMIDE) 20 MG/2 ML INJECTION Dose: 2 ML INTRAVEN NOW Label Comments: MAY INCREASE FALL RISK 2 ML Furosemide 10 MG/ML Injection (RxNorm): 5608143 LASIX INJ (FUROSEMIDE) NDC: 54411820219 TYLENOL(ACETAMINOPHEN) 325 MG TAB Dose: 650 MG ORAL EVERY 6 HOURS FEVER Label Comments: DO NOT EXCEED 4000 MG PER 24 HR Acetaminophen 325 MG Oral Tablet (RxNorm): 568693 TYLENOL (ACETAMINOPHEN) NDC: 30480752760 IV Medication Carriers: LEVAQUIN 500 MG/100 ML(LEVOFLOXACIN/DEXTROSE) 500 MG/100 ML INJECTION Dose: 100 ML INTRAVEN Q24H (Rate: 100 MLS/HR Duration: 1 HR) Clinical Indication: ABX non-surgical pt Label Comments: Expires 24 HRS after package opened Carriers: 100 ML Levofloxacin 5 MG/ML Injection (RxNorm): 2558136 LEVAQUIN 500 MG/100 ML (LEVOFLOXACIN/DEXTROSE) NDC: 78190139217 MOTRIN(IBUPROFEN) 600 MG TAB Dose: 600 MG ORAL Q6H fever, pain Label Comments: TAKE WITH FOOD OR MILK Ibuprofen 600 MG Oral Tablet (RxNorm): 803030 MOTRIN (IBUPROFEN) NDC: 35966271478 OxyCONTIN(OxyCODONE HCL) 40 MG TAB Dose: 40 MG ORAL TWICE A DAY Label Comments: MAY INCREASE FALL RISK 12 HR Oxycodone Hydrochloride 40 MG Extended Release Oral Tablet [Oxycontin] ( RxNorm): 0187706 OxyCONTIN (OxyCODONE HCL) NDC: 10364969412 LEVAQUIN(LEVOFLOXACIN) 500 MG TAB Dose: 500 MG ORAL DAILY@10 Label Comments: Take 2 hrs before or after antacids, sucralfate, metal cations(iron), or multi-vitamins Levofloxacin 500 MG Oral Tablet [Levaquin] (RxNorm): 814082 LEVAQUIN (LEVOFLOXACIN) NDC: 02148909364 MIRALAX(POLYETHYLENE GLYCOL) 17 GM POWDER Dose: 17 GM ORAL DAILY Label Comments: DISSOLVE IN 8 OZ OF WATER POLYETHYLENE GLYCOL 3350 142 MG/ML Oral Solution [Miralax] (RxNorm): 915107 MIRALAX (POLYETHYLENE GLYCOL) NDC: 71794303289 Discharge Medications - Medications that patient should continue to take. Review with physician Visit/Account #[id number] (July 25, 2015 7:14am - July 28, 2015 10:30am) Medication Route Sig/Schedule Precondition/Indication Comments/Instructions Codes NEURONTIN(GABAPENTIN) 400 MG CAPSULE Dose: 400 MG ORAL DAILY AT [facility] gabapentin 400 MG Oral Capsule [Neurontin] (RxNorm): 896507 NEURONTIN (GABAPENTIN) NDC: 81115032948 REGLAN(METOCLOPRAMIDE HCL) 10 MG TABLET Dose: 10 MG ORAL TWICE A DAY Metoclopramide 10 MG Oral Tablet [Reglan] (RxNorm): 055457 REGLAN (METOCLOPRAMIDE HCL) NDC: 23023723316 ZYRTEC(CETIRIZINE HCL) 10 MG CAPSULE Dose: 10 MG ORAL DAILY ZYRTEC (CETIRIZINE HCL) NDC: 30596012067 KEPPRA(LevETIRAcetam) 750 MG TAB Dose: 750 MG ORAL TWICE A DAY Levetiracetam 750 MG Oral Tablet [Keppra] (RxNorm): 407357 KEPPRA (LevETIRAcetam) NDC: 16981777534 LIPITOR(ATORVASTATIN) 80 MG TABLET Dose: 80 MG ORAL AT BEDTIME atorvastatin 80 MG Oral Tablet [Lipitor] (RxNorm): 046125 LIPITOR (ATORVASTATIN) NDC: 40938507893 SYNTHROID(LEVOTHYROXINE SODIUM) 0.125 MG TABLET Dose: 0.125 MG ORAL DAILY Levothyroxine Sodium 0.125 MG Oral Tablet [Synthroid] (RxNorm): 115857 SYNTHROID (LEVOTHYROXINE SODIUM) NDC: 92584696734 TOPAMAX(TOPIRAMATE) 100 MG TABLET Dose: 200 MG ORAL AT BEDTIME topiramate 100 MG Oral Tablet [Topamax] (RxNorm): 997690 TOPAMAX (TOPIRAMATE) NDC: 75834991367 CARDURA(DOXAZOSIN MESYLATE) 2 MG TABLET Dose: 1 MG ORAL TWICE A DAY Doxazosin 2 MG Oral Tablet [Cardura] (RxNorm): 633141 CARDURA (DOXAZOSIN MESYLATE) NDC: 69509191863 LEXAPRO(ESCITALOPRAM OXALATE) 20 MG TAB Dose: 20 MG ORAL DAILY Escitalopram 20 MG Oral Tablet [Lexapro] (RxNorm): 566020 LEXAPRO (ESCITALOPRAM OXALATE) NDC: 30980419167 IMDUR ER(ISOSORBIDE MONONITRATE) 30 MG TAB Dose: 30 MG ORAL DAILY 24 HR Isosorbide Mononitrate 30 MG Extended Release Oral Tablet (RxNorm): 884335 IMDUR ER (ISOSORBIDE MONONITRATE) NDC: 34050131245 PROTONIX(PANTOPRAZOLE) 40 MG TAB Dose: 40 MG ORAL DAILY pantoprazole 40 MG Delayed Release Oral Tablet [Protonix] (RxNorm): 348091 PROTONIX (PANTOPRAZOLE) NDC: 76649081664 REMERON(MIRTAZAPINE) 30 MG TABLET Dose: 30 MG ORAL AT BEDTIME Mirtazapine 30 MG Oral Tablet [Remeron] (RxNorm): 259541 REMERON (MIRTAZAPINE) NDC: 59296794802 BUSPAR(BusPIRone) 5 MG TAB Dose: 10 MG ORAL TWICE A DAY buspirone hydrochloride 5 MG Oral Tablet (RxNorm): 515636 BUSPAR (BusPIRone) NDC: 52467167079 NOVOLOG(INSULIN ASPART) 1000 UNIT/10 ML INJECTION Dose: 0 ML SUBCUTANEOUSLY .PER.PUMP Rx Instructions: patient reports 4.7-4.95 units per hour, and that she has a 15/1 carb ratio with meals Insulin, Aspart, Human 100 UNT/ML Injectable Solution [NovoLog] (RxNorm): 321801 NOVOLOG (INSULIN ASPART) NDC: 44391582010 NEURONTIN(GABAPENTIN) 400 MG CAPSULE Dose: 400 MG ORAL DAILY AT [facility] gabapentin 400 MG Oral Capsule [Neurontin] (RxNorm): 521851 NEURONTIN (GABAPENTIN) NDC: 50452289409 NEURONTIN(GABAPENTIN) 400 MG CAPSULE Dose: 800 MG ORAL AT BEDTIME gabapentin 400 MG Oral Capsule [Neurontin] (RxNorm): 675298 NEURONTIN (GABAPENTIN) NDC: 64971797589 ATIVAN(LORazepam) 0.5 MG TABLET Dose: 0.5 MG ORAL TWICE A DAY prn Lorazepam 0.5 MG Oral Tablet [Ativan] (RxNorm): 671057 ATIVAN (LORazepam) NDC: 43455347256 LOPRESSOR(METOPROLOL TARTRATE) 50 MG TABLET Dose: 50 MG ORAL TWICE A DAY Metoprolol Tartrate 50 MG Oral Tablet [Lopressor] (RxNorm): 708468 LOPRESSOR (METOPROLOL TARTRATE) NDC: 54992481599 HYDROcodone BIT/ACETAMINOPHEN 7.5-325 MG(HYDROcodone BIT/ACETAMINOPHEN) 1 EACH TABLET Dose: 1-2 TAB ORAL Q6H MODERATE PAIN Acetaminophen 325 MG / Hydrocodone Bitartrate 7.5 MG Oral Tablet (RxNorm): 897365 HYDROcodone BIT/ACETAMINOPHEN 7.5-325 MG (HYDROcodone BIT/ACETAMINOPHEN) NDC: 54340764060 LEVAQUIN(LEVOFLOXACIN) 500 MG TAB Dose: 500 MG ORAL DAILY@10 Levofloxacin 500 MG Oral Tablet [Levaquin] (RxNorm): 219201 LEVAQUIN (LEVOFLOXACIN) NDC: 50572185642 Oxycodone Er(OxyCODONE) 40 MG TAB Dose: 40 MG ORAL TWICE A DAY Oxycodone Er (OxyCODONE) NDC: 92622562497 Miralax(POLYETHYLENE GLYCOL) 17 GM POWDER Dose: 17 GRAM ORAL DAILY Miralax (POLYETHYLENE GLYCOL) NDC: 16389500569 History Of Encounters Encounters Visit/Account #[id number] (July 25, 2015 7:14am - July 28, 2015 10:30am) Account Status Physican Of Record Reason For Visit Visit Diagnosis Start Date/Time Stop Date/Time Santhosh NIRANJAN COTO MD RIGHT UPPER QUADANT PAIN R10.11: RIGHT UPPER QUADRANT PAIN ICD10 Jul 25, 2015 7:14am Jul 28, 2015 10:30am IN NIRANJAN COTO MD RIGHT UPPER QUADANT PAIN R10.11: RIGHT UPPER QUADRANT PAIN ICD10 Jul 25, 2015 7:14am Jul 28, 2015 10:30am History of Procedures Procedure List Visit/Account #[id number] (July 25, 2015 7:14am - July 28, 2015 10:30am) Code/Procedure Date [id number]: EXCISION OF LIVER, PERCUTANEOUS APPROACH, DIAGNOSTIC July 25, 2015 Discharge Instructions Discharge Instructions Visit/Account #[id number] (July 25, 2015 7:14am - July 28, 2015 10:30am) DISCHARGE INSTRUCTIONS Physician Documentation PROVIDER INSTRUCTIONS Discharge Diet As Tolerated Discharge Activity/Weight Bearing Status as tolerated Discharge Diet As Tolerated Discharge Activity/Weight Bearing Status as tolerated REASON TO CALL PROVIDER Notify Physician if: any questions/concerns/problems FOLLOW UP APPOINTMENTS Follow Up With Haydee next week--AUGUST 02 @ 9:15 AM. Social History Social History No Social History Data. Immunizations Immunizations Patient Unit Number: [id number] Immunizations No immunizations recorded.
--- OUTSIDE RECORDS SUMMARY | 2016-08-09 22:38 | XMS REPORT | Continuity of Care Document ---
Author Author [facility] Organization [facility] Address Unknown Phone Unavailable Care Team Providers Care Call Center Support Consultant Name Role Phone Emily López PP [phone] Insurance Providers Payer Name Policy Type Covered Democrat Covered Democrat Id Relationship Subscriber Subscriber Id DAVIS [id number] BRYANNA HIDALGO [id number] 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 02/09/09 2:20am Exposure to Occupational hazards: N 02/09 2:20am Allergies, Adverse Reactions, Alerts Allergen Type Severity Reaction Last Updated Ketorolac Allergy Unknown 11/10/12 Meperidine Allergy Unknown 11/10/12 Lisinopril Allergy Unknown 11/10/12 Medications Medication Dose Route Sig Days/Qty REGLAN 10MG10 MG/TAB (Metoclopramide) 10 MG PO BID PRILOSEC 20MG20 MG (Omeprazole) 20 MG PO QD KEPPRA [id number] MG (levETIRAcetam) 750 MG PO BID CARDURA 2MG2 MG (Doxazosin) 1 MG PO BID LOPRESSOR 550 MG/TAB (Metoprolol Tartrate) 50 MG PO BID ZYRTEC 10MG (3) 10 DAILY [id number] MG (Atorvastatin) 20 MG PO HS [id number] MG/CAP (Gabapentin) 400 MG PO QID EFFEXOR-XR150 MG (Venlafaxine XR) 150 MG PO DAILY NOVLOG (Insulin Aspart) 4 U SC Q 1HR SYNTHROID0.125 MG/T (Levothyroxine) 0.125 MG PO DAILY TEGRETOL-XR400 MG (carBAMazepine ER) 600 MG PO HS ANAFRANIL 25MG25 MG (clomiPRAMINE) 75 MG PO HS [id number] MG (Topiramate) 200 MG PO QD PHENERGAN 25 TA25 MG (Promethazine) 1 TAB PO Q6-8 HR PRN #10 Vital Signs Vital Reading Collection Date/Time Result Blood Pressure 11/10/12 8:47am 136/63 Ortho 11/10/12 [...] 11/09/12 8:33pm 100.0 Weight(lbs) 11/09/12 8:33pm 220.0 Blood Pressure 11/01/12 7:14am 149/82 Ortho 11/01/12 7:14am SI Temperature 11/01/12 7:14am 97.6 Source 11/01/12 7:14am O Respirations 11/01/12 7:14am 20 Pulse 11/01/12 7:14am 81 Type 11/01/12 7:14am PO SPO2 (%) 11/01/12 7:14am 96 Height(cm) 11/01/12 7:14am 154.9 Height(ft) 11/01/12 7:14am 5 Height(in) 11/01/12 7:14am 01 Weight(Kg) 11/01/12 7:14am 100.0 Weight(lbs) 11/01/12 7:14am 220.0 Blood Pressure 10/31/12 1:43am 134/67 Ortho 10/31/12 1:43am SI Temperature 10/31/12 1:43am 98.4 Source 10/31/12 1:43am O Respirations 10/31/12 1:43am 22 Pulse 10/31/12 1:43am 91 Type 10/31/12 1:43am PO SPO2 (%) 10/31/12 1:43am 94 Height(cm) 10/31/12 1:43am 154.9 Height(ft) 10/31/12 1:43am 5 Height(in) 10/31/12 1:43am 01 Weight(Kg) 10/31/12 1:43am 100.0 Weight(lbs) 10/31/12 1:43am 220.0 Blood Pressure 10/29/12 4:15am 142/80 Ortho 10/29/12 0:53am SI Temperature 10/29/12 0:53am 99.1 Source 10/29/12 0:53am O Respirations 10/29/12 4:50am 20 Pulse 10/29/12 4:50am 90 Type 10/29/12 0:53am DYN SPO2 (%) 10/29/12 4:50am 94 Height(cm) 10/27/12 2:23am 154.9 Height(ft) 10/29/12 0:53am 5 Height(in) 10/29/12 0:53am 1 Weight(Kg) 10/29/12 0:53am 100.0 Weight(lbs) 10/29/12 0:53am 220.0 Blood Pressure 10/27/12 2:23am 149/82 Ortho 10/27/12 2:23am SI Temperature 10/27/12 2:23am 97.5 Source 10/27/12 2:23am O Respirations 10/27/12 2:23am 22 Pulse 10/27/12 2:23am 90 Type 10/27/12 2:23am PO SPO2 (%) 10/27/12 2:23am 95 Height(cm) 10/27/12 2:23am 154.9 Height(ft) 10/27/12 2:23am 5 Height(in) 10/27/12 2:23am 01 Weight(Kg) 10/27/12 2:23am 100.0 Weight(lbs) 10/27/12 2:23am 220.0 Results Test Date Result Interp. Ref. Range Cholesterol Level 08/23/08 189 mg/dL 120 - 200 Cholesterol Risk Factor 08/23/08 4.7 - HDL Cholesterol 08/23/08 40 mg/dL - LDL Cholesterol, Calculated 08/23/08 77 mg/dL - Triglycerides Level 08/23/08 362 mg/dL - INR International Normalized Ratio 08/23/08 1.1 0 - 2.0 Partial Thromboplastin Time - [place] 08/23/08 23.9 SECONDS 18.0 - 35.0 Prothrombin [...] - 2.37 Acetone, Qualitative 09/03/12 NEGATIVE - C-Reactive Protein 09/03/12 3.1 mg/dL H 0.0 - 0.9 Whole Blood Glucose 09/14/12 120 mg/dL H 70 - 110 Urine Mucus 10/27/12 PRESENT H NOT PRESENT - Stool Occult Blood 10/29/12 NEGATIVE NEGATIVE - Rapid Troponin I 11/01/12 <0.02 ng/mL 0.00 - 0.08 Urine Appearance 11/01/12 HAZY - Urine Bacteria 11/01/12 PRESENT H NOT PRESENT - Urine Bilirubin 11/01/12 POSITIVE H NEGATIVE - Urine Blood 11/01/12 NEGATIVE NEGATIVE - Urine Collection Type 11/01/12 CLEAN CATCH - Urine Color 11/01/12 BROWN - Urine Epithelial Cells 11/01/12 MANY / lpf H FEW - Urine Glucose 11/01/12 NEGATIVE mg/dL - Urine Ketones 11/01/12 15 mg/dL H NEGATIVE - Urine Leukocyte Esterase 11/01/12 TRACE H NEGATIVE - Urine Nitrate 11/01/12 NEGATIVE NEGATIVE - Urine Protein 11/01/12 TRACE mg/dL H NEGATIVE - Urine RBC 11/01/12 0-3 /hpf 0 - 3 Urine Specific [place] 11/01/12 1.030 1.001 - 1.035 Urine Total Volume 11/01/12 12 mL - Urine Urobilinogen 11/01/12 4.0 H NORMAL - Urine WBC 11/01/12 4-8 /hpf H 0 - 3 Urine pH 11/01/12 5.0 5.0 - 8.0 Lipase 11/01/12 56 U/L 23 - 300 Basophils # 11/10/12 0.0 0.0 - 0.2 Basophils % 11/10/12 0.4 % 0.0 - 2.0 Eosinophils # 11/10/12 0.2 0.0 - 0.7 Eosinophils % 11/10/12 1.9 % 0 - 4.0 Granulocytes # 11/10/12 5.7 1.4 - 6.5 Granulocytes (%) 11/10/12 66.0 % 42.2 - 75.2 Hematocrit 11/10/12 36.1 % L 37.0 - 47.0 Hemoglobin 11/10/12 12.2 g/dl L 12.5 - 16.0 Lymphocytes # 11/10/12 2.3 1.2 - 3.4 Lymphocytes % 11/10/12 27.0 % 20.0 - 51.0 Mean Corpuscular Hemoglobin 11/10/12 31 pg 27.0 - 31.0 Mean Corpuscular Hemoglobin Concent 11/10/12 34 g/dl 33.0 - 37.0 Mean Corpuscular Volume 11/10/12 93 fl 80.0 - 100.0 Mean Platelet Volume 11/10/12 7.2 fl L 7.4 - 10.4 Monocytes # 11/10/12 0.4 0.1 - 0.6 Monocytes % 11/10/12 4.7 % 1.7 - 9.3 Platelet Count 11/10/12 244 K/mm3 130 - 400 Red Blood Count 11/10/12 3.88 M/mm3 L 4.10 - 5.30 Red Cell Distribution Width 11/10/12 13.6 % 11.5 - 14.5 White Blood Count 11/10/12 8.7 K/mm3 4.8 - 10.8 Alanine Aminotransferase (ALT/SGPT) 11/10/12 25 U/L 9 - 52 Albumin 11/10/12 4.5 gm/dL 3.5 - 5.0 Alkaline Phosphatase 11/10/12 179 U/L H 50 - 136 Anion Gap 11/10/12 17 mmol/L H 7 - 16 Aspartate Amino Transf (AST/SGOT) 11/10/12 39 U/L H 15 - 37 Blood Urea Nitrogen 11/10/12 13 mg/dL 7 - 18 Calcium Adjusted for Albumin 11/10/12 8.2 mg/dL L 8.4 - 10.2 Calcium Level 11/10/12 8.6 mg/dL L 8.8 - 10.5 Carbon Dioxide Level 11/10/12 22 mmol/L 21 - 32 Chloride Level 11/10/12 104 mmol/L 98 - 107 Creatinine 11/10/12 0.64 mg/dL 0.52 - 1.04 Estimated GFR () 11/10/12 121 - Estimated GFR (Non- 11/10/12 100 - Glucose Level 11/10/12 305 mg/dL H 74 - 106 Potassium Level 11/10/12 3.5 mmol/L 3.4 - 5.0 Serum Total Protein 11/10/12 7.6 gm/dL 6.4 - 8.2 Sodium Level 11/10/12 143 mmol/L 136 - 145 Total Bilirubin 11/10/12 0.3 mg/dL 0.0 - 1.0 Procedures Procedure Code Date UPPER GI ENDOSCOPY, BIOPSY 96695 Encounters Encounter Location Date/Time Departed [facility] 11/10/12 8:53am Dep[facility]ed [facility] 10/31/12 1:44am Departed [facility] 10/29/12 5:10am Departed [facility] 10/27/12 6:55am
--- OUTSIDE RECORDS SUMMARY | 2016-08-09 22:38 | XMS REPORT | Continuity of Care Document ---
Author Author [facility] Organization [facility] Address Unknown Phone Unavailable Care Team Providers Care Cath Lab Manager Name Role Phone Emily López PP [phone] Insurance Providers Payer Name Policy Type Covered Republican Covered Republican Id Relationship Subscriber Subscriber Id DAVIS [id number] BRYANNA HIDALGO [id number] [facility] [id number] SELF / SAME PATIENT CLARISA HIDALGO [id number] Advance Directives Directive Response Recorded Date/Time Type: Living Will 02/09/09 2:20am Problems Medical Problem Onset Date Abdominal pain Chest pain Chronic abdominal pain Diabetic gastroparesis Headache Social History History Response Recorded Date/Time 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, 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/09 2:20am Exposure to Occupational hazards: N 02/09 2:20am Allergies, Adverse Reactions, Alerts Allergen Type Severity Reaction Last Updated Ketorolac Allergy Unknown 11/01/12 Meperidine Allergy Unknown 11/01/12 Lisinopril Allergy Unknown 11/01/12 Medications Medication Dose Route Sig Days/Qty REGLAN 10MG10 MG/TAB (Metoclopramide) 10 MG PO BID PRILOSEC 20MG20 MG (Omeprazole) 20 MG PO QD KEPPRA [id number] MG (levETIRAcetam) 750 MG PO BID CARDURA 2MG2 MG (Doxazosin) 1 MG PO BID LOPRESSOR 550 MG/TAB (Metoprolol Tartrate) 50 MG PO BID ZYRTEC 10MG (3) 10 DAILY [id number] MG (Atorvastatin) 20 MG PO HS [id number] MG/CAP (Gabapentin) 400 MG PO QID EFFEXOR-XR150 MG (Venlafaxine XR) 150 MG PO DAILY NOVLOG (Insulin Aspart) 4 U SC Q 1HR SYNTHROID0.125 MG/T (Levothyroxine) 0.125 MG PO DAILY TEGRETOL-XR400 MG (carBAMazepine ER) 600 MG PO HS ANAFRANIL 25MG25 MG (clomiPRAMINE) 75 MG PO HS [id number] MG (Topiramate) 200 MG PO QD [id number] MG (Ciprofloxacin Hydrochloride) 500 MG PO BID 3 DS Vital Signs Vital Reading Collection Date/Time Result Blood Pressure 11/01/12 7:14am 149/82 Ortho 11/01/12 [...] 0 - 2.0 Partial Thromboplastin Time - [place] 08/23/08 23.9 SECONDS 18.0 - 35.0 Prothrombin [...] I 11/01/12 <0.02 ng/mL 0.00 - 0.08 Basophils # 11/01/12 0.0 0.0 - 0.2 Basophils % 11/01/12 0.5 % 0.0 - 2.0 Eosinophils # 11/01/12 0.2 0.0 - 0.7 Eosinophils % 11/01/12 2.1 % 0 - 4.0 Granulocytes # 11/01/12 4.4 1.4 - 6.5 Granulocytes (%) 11/01/12 62.2 % 42.2 - 75.2 Hematocrit 11/01/12 35.4 % L 37.0 - 47.0 Hemoglobin 11/01/12 12.0 g/dl L 12.5 - 16.0 Lymphocytes # 11/01/12 2.2 1.2 - 3.4 Lymphocytes % 11/01/12 30.4 % 20.0 - 51.0 Mean Corpuscular Hemoglobin 11/01/12 32 pg H 27.0 - 31.0 Mean Corpuscular Hemoglobin Concent 11/01/12 34 g/dl 33.0 - 37.0 Mean Corpuscular Volume 11/01/12 93 fl 80.0 - 100.0 Mean Platelet Volume 11/01/12 7.0 fl L 7.4 - 10.4 Monocytes # 11/01/12 0.3 0.1 - 0.6 Monocytes % 11/01/12 4.8 % 1.7 - 9.3 Platelet Count 11/01/12 227 K/mm3 130 - 400 Red Blood Count 11/01/12 3.81 M/mm3 L 4.10 - 5.30 Red Cell Distribution Width 11/01/12 14.1 % 11.5 - 14.5 White Blood Count 11/01/12 7.1 K/mm3 4.8 - 10.8 Urine Appearance 11/01/12 HAZY - Urine Bacteria [...] 0-3 /hpf 0 - 3 Urine Specific [place] 11/01/12 1.030 1.001 - 1.035 Urine Total Volume 11/01/12 12 mL - Urine Urobilinogen 11/01/12 4.0 H NORMAL - Urine WBC 11/01/12 4-8 /hpf H 0 - 3 Urine pH 11/01/12 5.0 5.0 - 8.0 Alanine Aminotransferase (ALT/SGPT) 11/01/12 23 U/L 9 - 52 Albumin 11/01/12 4.4 gm/dL 3.5 - 5.0 Alkaline Phosphatase 11/01/12 198 U/L H 50 - 136 Anion Gap 11/01/12 17 mmol/L H 7 - 16 Aspartate Amino Transf (AST/SGOT) 11/01/12 31 U/L 15 - 37 Blood Urea Nitrogen 11/01/12 14 mg/dL 7 - 18 Calcium Adjusted for Albumin 11/01/12 9.0 mg/dL 8.4 - 10.2 Calcium Level 11/01/12 9.3 mg/dL 8.8 - 10.5 Carbon Dioxide Level 11/01/12 22 mmol/L 21 - 32 Chloride Level 11/01/12 105 mmol/L 98 - 107 Creatinine 11/01/12 0.59 mg/dL 0.52 - 1.04 Estimated GFR () 11/01/12 133 - Estimated GFR (Non- 11/01/12 110 - Glucose Level 11/01/12 196 mg/dL H 74 - 106 Lipase 11/01/12 56 U/L 23 - 300 Potassium Level 11/01/12 3.6 mmol/L 3.4 - 5.0 Serum Total Protein 11/01/12 7.8 gm/dL 6.4 - 8.2 Sodium Level 11/01/12 144 mmol/L 136 - 145 Total Bilirubin 11/01/12 0.3 mg/dL 0.0 - 1.0 Procedures Procedure Code Date UPPER GI ENDOSCOPY, BIOPSY 65906 Encounters Encounter Location Date/Time Departed [facility] 11/01/12 10:10am Registered [facility] 10/31/12 1:44am Departed [facility] 10/29/12 5:10am Departed Emergency [facility] 10/27/12 6:55am
--- OUTSIDE RECORDS SUMMARY | 2016-08-09 22:38 | XMS REPORT | Continuity of Care Document ---
Author Author [facility] Organization [facility] Address Unknown Phone Unavailable Care Team Providers Care City Maintenance Manager Name Role Phone Emily López PP [phone] Insurance Providers Payer Name Policy Type Covered Green Party Covered Green Party Id Relationship Subscriber Subscriber Id DAVIS [id number] BRYANNA HIDALGO [id number] [facility] [id number] SELF / SAME PATIENT CLARISA HIDALGO [id number] Advance Directives Directive Response Recorded Date/Time Type: Living Will 02/04/13 1:58am Problems Medical Problem Onset Date Abdominal pain Chest pain Chronic abdominal pain Diabetic gastroparesis Frontal headache Headache Social History History Response Recorded Date/Time 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[employer], [employer] 02/04/13 1:58am Exposure to Occupational hazards: N 02/04 1:58am Allergies, Adverse Reactions, Alerts Allergen Type Severity Reaction Last Updated Ketorolac Allergy Unknown 12/03/12 Meperidine Allergy Unknown 12/03/12 Lisinopril Allergy Unknown 12/03/12 Medications Medication Dose Route Sig Days/Qty REGLAN 10MG10 MG/TAB (Metoclopramide) 10 MG PO BID PRILOSEC 20MG20 MG (Omeprazole) 20 MG PO QD KEPPRA [id number] MG (levETIRAcetam) 750 MG PO BID CARDURA 2MG2 MG (Doxazosin) 1 MG PO BID LOPRESSOR 550 MG/TAB (Metoprolol Tartrate) 50 MG PO BID ZPLYKOD08 MG (Atorvastatin) 20 MG PO HS [id number] MG/CAP (Gabapentin) 400 MG PO QID EFFEXOR-XR150 MG (Venlafaxine XR) 150 MG PO DAILY NOVLOG (Insulin Aspart) 4 U SC Q 1HR SYNTHROID0.125 MG/T (Levothyroxine) 0.125 MG PO DAILY ANAFRANIL 25MG25 MG (clomiPRAMINE) 75 MG PO HS [id number] MG (Topiramate) 200 MG PO QD TEGRETOL-XR400 MG (carBAMazepine ER) 800 MG PO HS ATIVAN 0.50.5 MG/TAB (LORazepam) 0.5 MG PO BID ASPIRIN 81M81 MG/TA2 (Aspirin) 81 MG PO DAILY TYLENOL [id number] MG (Acetaminophen) 650 MG PO Q4-6 HR PRN Vital Signs Vital Reading Collection Date/Time Result Blood Pressure 02/05/13 4:00pm 107/61 Ortho 02/05/13 4:00pm DE PAZ Temperature 02/05/13 4:00pm 98.9 Source 02/05/13 4:00pm O Respirations 02/05/13 4:00pm 20 Pulse 02/05/13 4:00pm 87 Type 02/05/13 4:00pm DYN SPO2 (%) 02/05/13 4:00pm 94 Height(cm) 02/04/13 2:30am 162.6 Height(ft) 02/04/13 2:30am 5 Height(in) 02/04/13 2:30am 4 Weight(Kg) 02/05/13 4:19am 99.6 Weight(lbs) 02/05/13 4:19am 219.2 Results Test Date Result Interp. Ref. Range Heparin Anti-Xa Act, Unfractionated 08/23/08 0.16 IU/mL L 0.35 - 0.70 Hemoglobin A1c 08/23/08 6.6 % - CSF Neisseria meningitidis A/Y Ag 04/07/12 NEGATIVE [...] 75.2 Platelet Estimate 06/03/12 NORMAL NORMAL - Acetone, Qualitative 09/03/12 NEGATIVE - Urine Mucus 10/27/12 PRESENT H NOT PRESENT [...] 0-3 /hpf 0 - 3 Urine Specific [place] 12/01/12 1.010 1.001 - 1.035 Urine Total [...] (%) 12/03/12 66.2 % 42.2 - 75.2 Lymphocytes # 12/03/12 3.0 1.2 - 3.4 Lymphocytes % 12/03/12 28.0 % 20.0 - 51.0 Monocytes # 12/03/12 0.4 0.1 - 0.6 Monocytes % 12/03/12 3.5 % 1.7 - 9.3 Alanine Aminotransferase (ALT/SGPT) 12/03/12 25 U/L 9 - 52 Albumin 12/03/12 4.2 gm/dL 3.5 - 5.0 Alkaline Phosphatase 12/03/12 171 U/L H 50 - 136 Aspartate Amino Transf (AST/SGOT) 12/03/12 48 U/L H 15 - 37 Calcium Adjusted for Albumin 12/03/12 8.5 mg/dL 8.4 - 10.2 Serum Total Protein 12/03/12 7.6 gm/dL 6.4 - 8.2 Total Bilirubin 12/03/12 0.5 mg/dL 0.0 - 1.0 Partial Thromboplastin Time - [place] 02/04/13 26.7 SECONDS 21.0 - 31.0 B-Type Natriuretic Peptide 02/04/13 <15 pg/mL 0 - 100 Cholesterol Level 02/04/13 287 mg/dL H 120 - 200 Cholesterol Risk Factor 02/04/13 TNP - Creatine Kinase 02/04/13 46 U/L 30 - 135 HDL Cholesterol 02/04/13 TNP mg/dL - LDL Cholesterol, Calculated 02/04/13 TNP mg/dL - Magnesium Level 02/04/13 1.4 mg/dL L 1.6 - 2.3 Triglycerides Level 02/04/13 1213 mg/dL - Hematocrit 02/05/13 37.2 % 37.0 - 47.0 Hemoglobin 02/05/13 12.3 g/dl L 12.5 - 16.0 Mean Corpuscular Hemoglobin 02/05/13 30 pg 27.0 - 31.0 Mean Corpuscular Hemoglobin Concent 02/05/13 33 g/dl L 33.0 - 37.0 Mean Corpuscular Volume 02/05/13 91 fl 80.0 - 100.0 Mean Platelet Volume 02/05/13 7.6 fl 7.4 - 10.4 Platelet Count 02/05/13 252 K/mm3 130 - 400 Red Blood Count 02/05/13 4.10 M/mm3 4.10 - 5.30 Red Cell Distribution Width 02/05/13 13.9 % 11.5 - 14.5 White Blood Count 02/05/13 8.8 K/mm3 4.8 - 10.8 INR International Normalized Ratio 02/05/13 1.1 0 - 2.0 Prothrombin Time 02/05/13 11.4 SECONDS 9.8 - 12.4 Amylase Level 02/05/13 41 U/L 30 - 110 Anion Gap 02/05/13 11 mmol/L 7 - 16 Blood Urea Nitrogen 02/05/13 9 mg/dL 7 - 18 Calcium Level 02/05/13 8.2 mg/dL L 8.8 - 10.5 Carbon Dioxide Level 02/05/13 26 mmol/L 21 - 32 Chloride Level 02/05/13 99 mmol/L 98 - 107 Creatine Kinase MB 02/05/13 0.40 ng/mL 0.00 - 2.37 Creatinine 02/05/13 0.52 mg/dL 0.52 - 1.04 Estimated GFR () 02/05/13 154 - Estimated GFR (Non- 02/05/13 127 - Glucose Level 02/05/13 217 mg/dL H 74 - 106 Lipase 02/05/13 29 U/L 23 - 300 Potassium Level 02/05/13 4.5 mmol/L 3.4 - 5.0 Sodium Level 02/05/13 136 mmol/L 136 - 145 Troponin I 02/05/13 < 0.012 ng/mL 0.000 - 0.034 Whole Blood Glucose 02/05/13 227 mg/dL H 70 - 110 Procedures Procedure Code Date UPPER GI ENDOSCOPY, BIOPSY 10389 Encounters Encounter Location Date/Time Discharged Inpatient [facility] 02/05/13 4:58pm
--- OUTSIDE RECORDS SUMMARY | 2016-08-09 22:39 | XMS REPORT | Continuity of Care Document ---
Author Author [facility] Organization [facility] Address Unknown Phone Unavailable Care Team Providers Care Soil Conservation Technician Name Role Phone Emily López PP [phone] Insurance Providers Payer Name Policy Type Covered Constitution Party Covered Constitution Party Id Relationship Subscriber Subscriber Id DAVIS [id number] BRYANNA HIDALGO [id number] [facility] [id number] SELF / SAME PATIENT CLARISA HIDALGO [id number] Advance Directives Directive Response Recorded Date/Time Type: Living Will 02/09/09 2:20am Problems Medical Problem Onset Date Abdominal pain Chest pain Chronic abdominal pain Diabetic gastroparesis Frontal headache Headache Social History History Response Recorded Date/Time 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, 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 Exposure to Occupational hazards: N 02/09 2:20am Allergies, Adverse Reactions, Alerts Allergen Type Severity Reaction Last Updated Ketorolac Allergy Unknown 12/01/12 Meperidine Allergy Unknown 12/01/12 Lisinopril Allergy Unknown 12/01/12 Medications Medication Dose Route Sig Days/Qty REGLAN 10MG10 MG/TAB (Metoclopramide) 10 MG PO BID PRILOSEC 20MG20 MG (Omeprazole) 20 MG PO QD KEPPRA [id number] MG (levETIRAcetam) 750 MG PO BID CARDURA 2MG2 MG (Doxazosin) 1 MG PO BID LOPRESSOR 550 MG/TAB (Metoprolol Tartrate) 50 MG PO BID ZYRTEC 10MG (3) 10 DAILY NOGDORQ58 MG (Atorvastatin) 20 MG PO HS [id number] MG/CAP (Gabapentin) 400 MG PO QID EFFEXOR-XR150 MG (Venlafaxine XR) 150 MG PO DAILY NOVLOG (Insulin Aspart) 4 U SC Q 1HR SYNTHROID0.125 MG/T (Levothyroxine) 0.125 MG PO DAILY ANAFRANIL 25MG25 MG (clomiPRAMINE) 75 MG PO HS [id number] MG (Topiramate) 200 MG PO QD Vital Signs Vital Reading Collection Date/Time Result Blood Pressure 12/01/12 9:16am 149/70 Ortho 12/01/12 [...] 0 - 2.0 Partial Thromboplastin Time - [place] 08/23/08 23.9 SECONDS 18.0 - 35.0 Prothrombin [...] Level 11/13/12 2.10 mmol/L 0.7 - 2.1 Basophils # 12/01/12 0.0 0.0 - 0.2 Basophils % 12/01/12 0.4 % 0.0 - 2.0 Eosinophils # 12/01/12 0.1 0.0 - 0.7 Eosinophils % 12/01/12 1.7 % 0 - 4.0 Granulocytes # 12/01/12 3.9 1.4 - 6.5 Granulocytes (%) 12/01/12 56.7 % 42.2 - 75.2 Hematocrit 12/01/12 35.9 % L 37.0 - 47.0 Hemoglobin 12/01/12 12.1 g/dl L 12.5 - 16.0 Lymphocytes # 12/01/12 2.5 1.2 - 3.4 Lymphocytes % 12/01/12 36.6 % 20.0 - 51.0 Mean Corpuscular Hemoglobin 12/01/12 31 pg 27.0 - 31.0 Mean Corpuscular Hemoglobin Concent 12/01/12 34 g/dl 33.0 - 37.0 Mean Corpuscular Volume 12/01/12 93 fl 80.0 - 100.0 Mean Platelet Volume 12/01/12 6.8 fl L 7.4 - 10.4 Monocytes # 12/01/12 0.3 0.1 - 0.6 Monocytes % 12/01/12 4.6 % 1.7 - 9.3 Platelet Count 12/01/12 237 K/mm3 130 - 400 Red Blood Count 12/01/12 3.87 M/mm3 L 4.10 - 5.30 Red Cell Distribution Width 12/01/12 13.8 % 11.5 - 14.5 White Blood Count 12/01/12 6.8 K/mm3 4.8 - 10.8 Alanine Aminotransferase (ALT/SGPT) 12/01/12 29 U/L 9 - 52 Albumin 12/01/12 4.3 gm/dL 3.5 - 5.0 Alkaline Phosphatase 12/01/12 188 U/L H 50 - 136 Anion Gap 12/01/12 12 mmol/L 7 - 16 Aspartate Amino Transf (AST/SGOT) 12/01/12 36 U/L 15 - 37 Blood Urea Nitrogen 12/01/12 10 mg/dL 7 - 18 C-Reactive Protein 12/01/12 2.4 mg/dL H 0.0 - 0.9 Calcium Adjusted for Albumin 12/01/12 8.9 mg/dL 8.4 - 10.2 Calcium Level 12/01/12 9.1 mg/dL 8.8 - 10.5 Carbon Dioxide Level 12/01/12 22 mmol/L 21 - 32 Chloride Level 12/01/12 106 mmol/L 98 - 107 Creatinine 12/01/12 0.57 mg/dL 0.52 - 1.04 Estimated GFR () 12/01/12 138 - Estimated GFR (Non- 12/01/12 114 - Glucose Level 12/01/12 197 mg/dL H 74 - 106 Lipase 12/01/12 56 U/L 23 - 300 Potassium Level 12/01/12 4.3 mmol/L 3.4 - 5.0 Serum Total Protein 12/01/12 7.6 gm/dL 6.4 - 8.2 Sodium Level 12/01/12 140 mmol/L 136 - 145 Total Bilirubin 12/01/12 0.3 mg/dL 0.0 - 1.0 Urine Appearance 12/01/12 HAZY - Urine Bacteria [...] 0-3 /hpf 0 - 3 Urine Specific [place] 12/01/12 1.010 1.001 - 1.035 Urine Total Volume 12/01/12 12 mL - Urine Urobilinogen 12/01/12 NORMAL NORMAL - Urine WBC 12/01/12 4-8 /hpf H 0 - 3 Urine pH 12/01/12 7.0 5.0 - 8.0 Procedures Procedure Code Date UPPER GI ENDOSCOPY, BIOPSY 73910 [facility] 11/10/12 8:53am [facility] 11/09/12 10:20pm
--- OUTSIDE RECORDS SUMMARY | 2016-08-09 22:39 | XMS REPORT | Continuity of Care Document ---
Author Author [facility] Organization [facility] Address Unknown Phone Unavailable Care Team Providers Care Plywood Layup Line Core Layer Name Role Phone Emily López PP [phone] Insurance Providers Payer Name Policy Type Covered Democrat Covered Democrat Id Relationship Subscriber Subscriber Id DAVIS [id number] BRYANNA HIDALGO [id number] [facility] [id number] SELF / SAME PATIENT CLARISA HIDALGO [id number] Advance Directives Directive Response Recorded Date/Time Type: Living Will 02/09/09 2:20am Problems Medical Problem Onset Date Abdominal pain Chest pain Chronic abdominal pain Diabetic gastroparesis Headache Social History History Response Recorded Date/Time 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, 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 02/09/09 2:20am Exposure to Occupational hazards: N 02/09 2:20am Allergies, Adverse Reactions, Alerts Allergen Type Severity Reaction Last Updated Ketorolac Allergy Unknown 10/27/12 Meperidine Allergy Unknown 10/27/12 Lisinopril Allergy Unknown 10/27/12 Medications Medication Dose Route Sig Days/Qty REGLAN 10MG10 MG/TAB (Metoclopramide) 10 MG PO BID PRILOSEC 20MG20 MG (Omeprazole) 20 MG PO QD KEPPRA [id number] MG (levETIRAcetam) 750 MG PO BID CARDURA 2MG2 MG (Doxazosin) 1 MG PO BID LOPRESSOR 550 MG/TAB (Metoprolol Tartrate) 50 MG PO BID ZYRTEC 10MG (3) 10 DAILY BXASZCO06 MG (Atorvastatin) 20 MG PO HS [id number] MG/CAP (Gabapentin) 400 MG PO QID EFFEXOR-XR150 MG (Venlafaxine XR) 150 MG PO DAILY NOVLOG (Insulin Aspart) 4 U SC Q 1HR SYNTHROID0.125 MG/T (Levothyroxine) 0.125 MG PO DAILY TEGRETOL-XR400 MG (carBAMazepine ER) 600 MG PO HS ANAFRANIL 25MG25 MG (clomiPRAMINE) 75 MG PO HS [id number] MG (Topiramate) 200 MG PO QD PHENERGAN 25 TA25 MG (Promethazine) 1 TAB PO Q6-8 HR PRN #8 Vital Signs Vital Reading Collection Date/Time Result Blood Pressure 10/27/12 2:23am 149/82 Ortho 10/27/12 2:23am SI Temperature 10/27/12 2:23am 97.5 Source 10/27/12 2:23am O Respirations 10/27/12 2:23am 22 Pulse 10/27/12 2:23am 90 Type 10/27/12 2:23am PO SPO2 (%) 10/27/12 2:23am 95 Height(cm) 10/27/12 2:23am 154.9 Height(ft) 10/27/12 2:23am 5 Height(in) 10/27/12 2:23am 01 Weight(Kg) 10/27/12 2:23am 100.0 Weight(lbs) 10/27/12 2:23am 220.0 Blood Pressure 09/28/12 3:58am 139/41 Ortho 09/28/12 3:58am DE PAZ Temperature 09/28/12 1:58am 97.2 Source 09/28/12 1:58am O Respirations 09/28/12 3:58am 24 Pulse 09/28/12 3:58am 100 Type 09/28/12 3:58am PO SPO2 (%) 09/28/12 3:58am 95 Height(cm) 09/28/12 1:58am 154.9 Height(ft) 09/28/12 1:58am 5 Height(in) 09/28/12 1:58am 01 Weight(Kg) 09/28/12 1:58am 100.0 Weight(lbs) 09/28/12 1:58am 220.0 Results Test Date Result Interp. Ref. [...] 09/14/12 120 mg/dL H 70 - 110 Rapid Troponin I 09/14/12 <0.02 ng/mL 0.00 - 0.08 Basophils # 10/27/12 0.0 0.0 - 0.2 Basophils % 10/27/12 0.4 % 0.0 - 2.0 Eosinophils # 10/27/12 0.1 0.0 - 0.7 Eosinophils % 10/27/12 1.8 % 0 - 4.0 Granulocytes # 10/27/12 4.5 1.4 - 6.5 Granulocytes (%) 10/27/12 61.3 % 42.2 - 75.2 Hematocrit 10/27/12 35.2 % L 37.0 - 47.0 Hemoglobin 10/27/12 12.0 g/dl L 12.5 - 16.0 Lymphocytes # 10/27/12 2.3 1.2 - 3.4 Lymphocytes % 10/27/12 31.0 % 20.0 - 51.0 Mean Corpuscular Hemoglobin 10/27/12 32 pg H 27.0 - 31.0 Mean Corpuscular Hemoglobin Concent 10/27/12 34 g/dl 33.0 - 37.0 Mean Corpuscular Volume 10/27/12 93 fl 80.0 - 100.0 Mean Platelet Volume 10/27/12 7.1 fl L 7.4 - 10.4 Monocytes # 10/27/12 0.4 0.1 - 0.6 Monocytes % 10/27/12 5.5 % 1.7 - 9.3 Platelet Count 10/27/12 226 K/mm3 130 - 400 Red Blood Count 10/27/12 3.80 M/mm3 L 4.10 - 5.30 Red Cell Distribution Width 10/27/12 13.9 % 11.5 - 14.5 White Blood Count 10/27/12 7.4 K/mm3 4.8 - 10.8 Alanine Aminotransferase (ALT/SGPT) 10/27/12 24 U/L 9 - 52 Albumin 10/27/12 4.1 gm/dL 3.5 - 5.0 Alkaline Phosphatase 10/27/12 180 U/L H 50 - 136 Anion Gap 10/27/12 15 mmol/L 7 - 16 Aspartate Amino Transf (AST/SGOT) 10/27/12 34 U/L 15 - 37 Blood Urea Nitrogen 10/27/12 13 mg/dL 7 - 18 Calcium Adjusted for Albumin 10/27/12 8.6 mg/dL 8.4 - 10.2 Calcium Level 10/27/12 8.7 mg/dL L 8.8 - 10.5 Carbon Dioxide Level 10/27/12 22 mmol/L 21 - 32 Chloride Level 10/27/12 105 mmol/L 98 - 107 Creatinine 10/27/12 0.49 mg/dL L 0.52 - 1.04 Estimated GFR () 10/27/12 165 - Estimated GFR (Non- 10/27/12 136 - Glucose Level 10/27/12 191 mg/dL H 74 - 106 Lipase 10/27/12 69 U/L 23 - 300 Potassium Level 10/27/12 3.7 mmol/L 3.4 - 5.0 Serum Total Protein 10/27/12 7.6 gm/dL 6.4 - 8.2 Sodium Level 10/27/12 143 mmol/L 136 - 145 Total Bilirubin 10/27/12 0.3 mg/dL 0.0 - 1.0 Urine Appearance 10/27/12 CLOUDY - Urine Bacteria 10/27/12 PRESENT H NOT PRESENT - Urine Bilirubin 10/27/12 NEGATIVE NEGATIVE - Urine Blood 10/27/12 NEGATIVE NEGATIVE - Urine Collection Type 10/27/12 CLEAN CATCH - Urine Color 10/27/12 YELLOW - Urine Epithelial Cells 10/27/12 MANY / lpf H FEW - Urine Glucose 10/27/12 50 mg/dL mg/dL H - Urine Ketones 10/27/12 NEGATIVE NEGATIVE - Urine Leukocyte Esterase 10/27/12 NEGATIVE NEGATIVE - Urine Mucus 10/27/12 PRESENT H NOT PRESENT - Urine Nitrate 10/27/12 NEGATIVE NEGATIVE - Urine Protein 10/27/12 NEGATIVE mg/dL NEGATIVE - Urine RBC 10/27/12 0-3 /hpf 0 - 3 Urine Specific [place] 10/27/12 1.025 1.001 - 1.035 Urine Total Volume 10/27/12 12 mL - Urine Urobilinogen 10/27/12 NORMAL NORMAL - Urine WBC 10/27/12 0-3 /hpf 0 - 3 Urine pH 10/27/12 6.0 5.0 - 8.0 Procedures Procedure Code Date UPPER GI ENDOSCOPY, BIOPSY 49334 [facility] En[facility] 09/28/12 5:42am
--- OUTSIDE RECORDS SUMMARY | 2016-08-09 22:39 | XMS REPORT | Continuity of Care Document ---
Author Author [facility] Organization [facility] Address Unknown Phone Unavailable Care Team Providers Care Sales Representative Sales Manager Name Role Phone Emily López PP [phone] Insurance Providers Payer Name Policy Type Covered Libertarian Covered Libertarian Id Relationship Subscriber Subscriber Id DAVIS [id number] BRYANNA HIDALGO [id number] [facility] [id number] SELF / SAME PATIENT CLARISA HIDALGO [id number] Advance Directives Directive Response Recorded Date/Time Type: Living Will 02/09/09 2:20am Problems Medical Problem Onset Date Abdominal pain Chest pain Chronic abdominal pain Diabetic gastroparesis Frontal headache Headache Social History History Response Recorded Date/Time 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, 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 2: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 Exposure to Occupational hazards: N 02/09 2:20am Allergies, Adverse Reactions, Alerts Allergen Type Severity Reaction Last Updated Ketorolac Allergy Unknown 11/13/12 Meperidine Allergy Unknown 11/13/12 Lisinopril Allergy Unknown 11/13/12 Medications Medication Dose Route Sig Days/Qty REGLAN 10MG10 MG/TAB (Metoclopramide) 10 MG PO BID PRILOSEC 20MG20 MG (Omeprazole) 20 MG PO QD KEPPRA [id number] MG (levETIRAcetam) 750 MG PO BID CARDURA 2MG2 MG (Doxazosin) 1 MG PO BID LOPRESSOR 550 MG/TAB (Metoprolol Tartrate) 50 MG PO BID ZYRTEC 10MG (3) 10 DAILY [id number] MG (Atorvastatin) 20 MG PO HS [id number] MG/CAP (Gabapentin) 400 MG PO QID EFFEXOR-XR150 MG (Venlafaxine XR) 150 MG PO DAILY NOVLOG (Insulin Aspart) 4 U SC Q 1HR SYNTHROID0.125 MG/T (Levothyroxine) 0.125 MG PO DAILY TEGRETOL-XR400 MG (carBAMazepine ER) 600 MG PO HS ANAFRANIL 25MG25 MG (clomiPRAMINE) 75 MG PO HS [id number] MG (Topiramate) 200 MG PO QD PHENERGAN 25 TA25 MG (Promethazine) 1 TAB PO Q6-8 HR PRN #10 Vital Signs Vital Reading Collection Date/Time Result Blood Pressure 11/13/12 5:16am 141/93 Ortho 11/13/12 [...] Stool Occult Blood 10/29/12 NEGATIVE NEGATIVE - Urine Appearance 11/01/12 HAZY - Urine Bacteria [...] 0-3 /hpf 0 - 3 Urine Specific [place] 11/01/12 1.030 1.001 - 1.035 Urine Total Volume 11/01/12 12 mL - Urine Urobilinogen 11/01/12 4.0 H NORMAL - Urine WBC 11/01/12 4-8 /hpf H 0 - 3 Urine pH 11/01/12 5.0 5.0 - 8.0 Basophils # 11/13/12 0.0 0.0 - 0.2 Basophils % 11/13/12 0.5 % 0.0 - 2.0 Eosinophils # 11/13/12 0.2 0.0 - 0.7 Eosinophils % 11/13/12 2.1 % 0 - 4.0 Granulocytes # 11/13/12 5.1 1.4 - 6.5 Granulocytes (%) 11/13/12 58.5 % 42.2 - 75.2 Hematocrit 11/13/12 37.0 % 37.0 - 47.0 Hemoglobin 11/13/12 12.5 g/dl 12.5 - 16.0 Lymphocytes # 11/13/12 3.0 1.2 - 3.4 Lymphocytes % 11/13/12 34.5 % 20.0 - 51.0 Mean Corpuscular Hemoglobin 11/13/12 31 pg 27.0 - 31.0 Mean Corpuscular Hemoglobin Concent 11/13/12 34 g/dl 33.0 - 37.0 Mean Corpuscular Volume 11/13/12 92 fl 80.0 - 100.0 Mean Platelet Volume 11/13/12 6.9 fl L 7.4 - 10.4 Monocytes # 11/13/12 0.4 0.1 - 0.6 Monocytes % 11/13/12 4.4 % 1.7 - 9.3 Platelet Count 11/13/12 244 K/mm3 130 - 400 Red Blood Count 11/13/12 4.00 M/mm3 L 4.10 - 5.30 Red Cell Distribution Width 11/13/12 14.1 % 11.5 - 14.5 White Blood Count 11/13/12 8.8 K/mm3 4.8 - 10.8 Rapid Troponin I 11/13/12 <0.02 ng/mL 0.00 - 0.08 Alanine Aminotransferase (ALT/SGPT) 11/13/12 30 U/L 9 - 52 Albumin 11/13/12 4.6 gm/dL 3.5 - 5.0 Alkaline Phosphatase 11/13/12 176 U/L H 50 - 136 Anion Gap 11/13/12 16 mmol/L 7 - 16 Aspartate Amino Transf (AST/SGOT) 11/13/12 44 U/L H 15 - 37 Blood Urea Nitrogen 11/13/12 10 mg/dL 7 - 18 Calcium Adjusted for Albumin 11/13/12 8.9 mg/dL 8.4 - 10.2 Calcium Level 11/13/12 9.4 mg/dL 8.8 - 10.5 Carbon Dioxide Level 11/13/12 23 mmol/L 21 - 32 Chloride Level 11/13/12 104 mmol/L 98 - 107 Creatinine 11/13/12 0.56 mg/dL 0.52 - 1.04 Estimated GFR () 11/13/12 142 - Estimated GFR (Non- 11/13/12 117 - Glucose Level 11/13/12 119 mg/dL H 74 - 106 Lactic Acid Level 11/13/12 2.10 mmol/L 0.7 - 2.1 Lipase 11/13/12 61 U/L 23 - 300 Potassium Level 11/13/12 3.5 mmol/L 3.4 - 5.0 Serum Total Protein 11/13/12 8.0 gm/dL 6.4 - 8.2 Sodium Level 11/13/12 144 mmol/L 136 - 145 Total Bilirubin 11/13/12 0.3 mg/dL 0.0 - 1.0 Procedures Procedure Code Date UPPER GI ENDOSCOPY, BIOPSY 72695 [facility] Reg[facility] 10/31/12 1:44am [facility]
--- OUTSIDE RECORDS SUMMARY | 2016-08-09 22:39 | XMS REPORT | Continuity of Care Document ---
Author Author [facility] Organization [facility] Address Unknown Phone Unavailable Care Team Providers Care Laboratory Technology Teacher Name Role Phone Emily López PP [phone] Insurance Providers Payer Name Policy Type Covered Alliance Party Covered Alliance Party Id Relationship Subscriber Subscriber Id DAVIS [id number] BRYANNA HIDALGO [id number] [facility] [id number] SELF / SAME PATIENT CLARISA HIDALGO [id number] Advance Directives Directive Response Recorded Date/Time Type: Living Will 02/09/09 2:20am Problems Medical Problem Onset Date Abdominal pain Chest pain Chronic abdominal pain Diabetic gastroparesis Headache Social History History Response Recorded Date/Time 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, 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 Exposure to Occupational hazards: N 02/09 2:20am Allergies, Adverse Reactions, Alerts Allergen Type Severity Reaction Last Updated Ketorolac Allergy Unknown 11/09/12 Meperidine Allergy Unknown 11/09/12 Lisinopril Allergy Unknown 11/09/12 Medications Medication Dose Route Sig Days/Qty REGLAN 10MG10 MG/TAB (Metoclopramide) 10 MG PO BID PRILOSEC 20MG20 MG (Omeprazole) 20 MG PO QD KEPPRA [id number] MG (levETIRAcetam) 750 MG PO BID CARDURA 2MG2 MG (Doxazosin) 1 MG PO BID LOPRESSOR 550 MG/TAB (Metoprolol Tartrate) 50 MG PO BID ZYRTEC 10MG (3) 10 DAILY [id number] MG (Atorvastatin) 20 MG PO HS [id number] MG/CAP (Gabapentin) 400 MG PO QID EFFEXOR-XR150 MG (Venlafaxine XR) 150 MG PO DAILY NOVLOG (Insulin Aspart) 4 U SC Q 1HR SYNTHROID0.125 MG/T (Levothyroxine) 0.125 MG PO DAILY TEGRETOL-XR400 MG (carBAMazepine ER) 600 MG PO HS ANAFRANIL 25MG25 MG (clomiPRAMINE) 75 MG PO HS [id number] MG (Topiramate) 200 MG PO QD Vital Signs Vital Reading Collection Date/Time Result Blood Pressure 11/09/12 8:33pm 115/67 Ortho 11/09/12 [...] 0-3 /hpf 0 - 3 Urine Specific [place] 11/01/12 1.030 1.001 - 1.035 Urine Total [...] Procedure Code Date UPPER GI ENDOSCOPY, BIOPSY 95599 Encounters Encounter Location Date/Time [facility]
--- OUTSIDE RECORDS SUMMARY | 2016-08-09 22:40 | XMS REPORT | Continuity of Care Document ---
Author Author [facility] Organization [facility] Address Unknown Phone Unavailable Care Team Providers Care Telemetry Monitor Name Role Phone Emily López PP [phone] Insurance Providers Payer Name Policy Type Covered Democrat Covered Democrat Id Relationship Subscriber Subscriber Id ADVIS [id number] BRYANNA HIDALGO [id number] [facility] [id number] SELF / SAME PATIENT CLARISA HIDALGO [id number] Advance Directives Directive Response Recorded Date/Time Type: Living Will 02/09/09 2:20am Problems Medical Problem Onset Date Abdominal pain Chest pain Chronic abdominal pain Diabetic gastroparesis Headache Social History History Response Recorded Date/Time 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, 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 2: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 Exposure to Occupational hazards: N 02/09 2:20am Allergies, Adverse Reactions, Alerts Allergen Type Severity Reaction Last Updated Ketorolac Allergy Unknown 10/29/12 Meperidine Allergy Unknown 10/29/12 Lisinopril Allergy Unknown 10/29/12 Medications Medication Dose Route Sig Days/Qty REGLAN 10MG10 MG/TAB (Metoclopramide) 10 MG PO BID PRILOSEC 20MG20 MG (Omeprazole) 20 MG PO QD KEPPRA [id number] MG (levETIRAcetam) 750 MG PO BID CARDURA 2MG2 MG (Doxazosin) 1 MG PO BID LOPRESSOR 550 MG/TAB (Metoprolol Tartrate) 50 MG PO BID ZYRTEC 10MG (3) 10 DAILY RNBLCPL19 MG (Atorvastatin) 20 MG PO HS [id number] MG/CAP (Gabapentin) 400 MG PO QID EFFEXOR-XR150 MG (Venlafaxine XR) 150 MG PO DAILY NOVLOG (Insulin Aspart) 4 U SC Q 1HR SYNTHROID0.125 MG/T (Levothyroxine) 0.125 MG PO DAILY TEGRETOL-XR400 MG (carBAMazepine ER) 600 MG PO HS ANAFRANIL 25MG25 MG (clomiPRAMINE) 75 MG PO HS [id number] MG (Topiramate) 200 MG PO QD PHENERGAN 25 TA25 MG (Promethazine) 1 TAB PO Q6-8 HR PRN #8 Vital Signs Vital Reading Collection Date/Time Result Blood Pressure 10/29/12 4:15am 142/80 Ortho 10/29/12 [...] I 09/14/12 <0.02 ng/mL 0.00 - 0.08 Urine Appearance 10/27/12 CLOUDY - Urine Bacteria [...] 0-3 /hpf 0 - 3 Urine Specific [place] 10/27/12 1.025 1.001 - 1.035 Urine Total Volume 10/27/12 12 mL - Urine Urobilinogen 10/27/12 NORMAL NORMAL - Urine WBC 10/27/12 0-3 /hpf 0 - 3 Urine pH 10/27/12 6.0 5.0 - 8.0 Basophils # 10/29/12 0.0 0.0 - 0.2 Basophils % 10/29/12 0.4 % 0.0 - 2.0 Eosinophils # 10/29/12 0.1 0.0 - 0.7 Eosinophils % 10/29/12 2.0 % 0 - 4.0 Granulocytes # 10/29/12 4.4 1.4 - 6.5 Granulocytes (%) 10/29/12 62.6 % 42.2 - 75.2 Hematocrit 10/29/12 35.7 % L 37.0 - 47.0 Hemoglobin 10/29/12 12.0 g/dl L 12.5 - 16.0 Lymphocytes # 10/29/12 2.1 1.2 - 3.4 Lymphocytes % 10/29/12 30.3 % 20.0 - 51.0 Mean Corpuscular Hemoglobin 10/29/12 31 pg 27.0 - 31.0 Mean Corpuscular Hemoglobin Concent 10/29/12 34 g/dl 33.0 - 37.0 Mean Corpuscular Volume 10/29/12 93 fl 80.0 - 100.0 Mean Platelet Volume 10/29/12 7.2 fl L 7.4 - 10.4 Monocytes # 10/29/12 0.3 0.1 - 0.6 Monocytes % 10/29/12 4.7 % 1.7 - 9.3 Platelet Count 10/29/12 226 K/mm3 130 - 400 Red Blood Count 10/29/12 3.84 M/mm3 L 4.10 - 5.30 Red Cell Distribution Width 10/29/12 14.0 % 11.5 - 14.5 White Blood Count 10/29/12 7.0 K/mm3 4.8 - 10.8 Alanine Aminotransferase (ALT/SGPT) 10/29/12 29 U/L 9 - 52 Albumin 10/29/12 4.2 gm/dL 3.5 - 5.0 Alkaline Phosphatase 10/29/12 175 U/L H 50 - 136 Anion Gap 10/29/12 16 mmol/L 7 - 16 Aspartate Amino Transf (AST/SGOT) 10/29/12 36 U/L 15 - 37 Blood Urea Nitrogen 10/29/12 9 mg/dL 7 - 18 Calcium Adjusted for Albumin 10/29/12 8.7 mg/dL 8.4 - 10.2 Calcium Level 10/29/12 8.9 mg/dL 8.8 - 10.5 Carbon Dioxide Level 10/29/12 23 mmol/L 21 - 32 Chloride Level 10/29/12 105 mmol/L 98 - 107 Creatinine 10/29/12 0.51 mg/dL L 0.52 - 1.04 Estimated GFR () 10/29/12 157 - Estimated GFR (Non- 10/29/12 130 - Glucose Level 10/29/12 211 mg/dL H 74 - 106 Lipase 10/29/12 50 U/L 23 - 300 Potassium Level 10/29/12 4.0 mmol/L 3.4 - 5.0 Serum Total Protein 10/29/12 7.7 gm/dL 6.4 - 8.2 Sodium Level 10/29/12 143 mmol/L 136 - 145 Total Bilirubin 10/29/12 0.4 mg/dL 0.0 - 1.0 Stool Occult Blood 10/29/12 NEGATIVE NEGATIVE - Procedures Procedure Code Date UPPER GI ENDOSCOPY, BIOPSY 92645 Encounters Encounter Location Date/Time Departed [facility] 10/29/12 5:10am Departed [facility] 10/27/12 6:55am
--- OUTSIDE RECORDS SUMMARY | 2016-08-09 22:40 | XMS REPORT | Continuity Of Care Document ---
Author Author [facility] Organization [facility] Address [address] [place] [address] Phone Care Team Providers Care Microfilm Processor Name Role Phone AMAIRANI RUTELDGE DO AT MAURY ESQUIVEL MD PP Results Lab Results Visit/Account #[id number] (December 04, 2012 12:47am - December 04, 2012 4:08am) Test Result Reported Date/Time COMPLETE BLOOD COUNT WITH DIFF WHITE BLOOD COUNT(4.0-11.0 10E3/UL) 8.3 10E3/UL December 04, 2012 1:42am RED BLOOD COUNT(3.80-5.20 10E6/UL) 3.96 10E6/UL December 04, 2012 1:42am HEMOGLOBIN(12.0-16.0 G/DL) 12.0 G/DL December 04, 2012 1:42am HEMATOCRIT(36.0-48.0 %) 36.1 % December 04, 2012 1:42am MEAN CORPUSCULAR VOLUME(80.0-100.0 FL) 91.2 FL December 04, 2012 1:42am MEAN CORPUSCULAR HEMOGLOBIN(27.0-34.0 PG) 30.3 PG December 04, 2012 1:42am MEAN CORPUSCULAR HGB CONC(33.0-37.0 G/DL) 33.2 G/DL December 04, 2012 1:42am RED CELL DISTRIBUTION WIDTH(11.0-15.0 %) 13.3 % December 04, 2012 1:42am 777-3: PLATELET COUNT(130-400 10E3/UL) 188 10E3/UL December 04, 2012 1:42am MEAN PLATELET VOLUME(7.4-11.0 FL) 9.1 FL December 04, 2012 1:42am NEUTROPHILS % (AUTO)(40-70 %) 66 % December 04, 2012 1:42am LYMPHOCYTES % (AUTO)(15-45 %) 27 % December 04, 2012 1:42am MONOCYTES % (AUTO)(2-10 %) 4 % December 04, 2012 1:42am EOSINOPHILS % (AUTO)(0-6 %) 2 % December 04, 2012 1:42am BASOPHILS % (AUTO)(0-1 %) 1 % December 04, 2012 1:42am IMMATURE GRANS % (AUTO)(0-0 %) 1 % December 04, 2012 1:42am NUCLEATED RBCS (AUTO)(0-0 %) 0 % December 04, 2012 1:42am NEUTROPHILS # (AUTO)(2.5-7.5 10E3/UL) 5.5 10E3/UL December 04, 2012 1:42am LYMPHOCYTES # (AUTO)(1.0-4.0 10E3/UL) 2.3 10E3/UL December 04, 2012 1:42am MONOCYTES # (AUTO)(0.2-0.8 10E3/UL) 0.3 10E3/UL December 04, 2012 1:42am EOSINOPHILS # (AUTO)(0.0-0.4 10E3/UL) 0.1 10E3/UL December 04, 2012 1:42am BASOPHILS # (AUTO)(0.0-0.2 10E3/UL) 0.0 10E3/UL December 04, 2012 1:42am IMMATURE GRANS # (AUTO)(0.0-0.0 10E3/UL) 0.1 10E3/UL December 04, 2012 1:42am DIFF TYPE AUTOMATED December 04, 2012 1:42am 98587-4: PROTHROMBIN TIME WITH INR PROTHROMBIN TIME(12.6-14.9 SEC) 12.1 SEC December 04, 2012 1:30am 00153-6: INR 0.92 Result Comments: INR reference interval applies to patients on anticoagulant therapy. Suggested INR therapeutic range for oral anticoagulant therapy: (Stabilized anticoagulated patients) Routine Therapy: 2.0 to 3.0 Recurrent Myocardial Infarction: 2.5 to 3.5 Mechanical Prosthetic Valves: 2.5 to 3.5 December 04, 2012 1:30am PARTIAL THROMBOPLASTIN TIME PARTIAL THROMBOPLASTIN TIME(22.2-37.4 SEC) 20.0 SEC December 04, 2012 1:30am UA WITH SCREEN FOR CULTURE COLOR,URINE YELLOW December 04, 2012 3:40am CLARITY,URINE CLEAR December 04, 2012 3:40am GLUCOSE, URINE(NEGATIVE MG/DL) 100 MG/DL December 04, 2012 3:40am URINE BILIRUBIN(NEGATIVE) NEGATIVE December 04, 2012 3:40am KETONES,URINE(NEGATIVE MG/DL) NEGATIVE MG/DL December 04, 2012 3:40am URINE SPECIFIC GRAVITY(1.001-1.035) Less than or equal to 1.005 December 04, 2012 3:40am URINE BLOOD(NEGATIVE) NEGATIVE December 04, 2012 3:40am URINE PH(5.0-9.0) 7.0 December 04, 2012 3:40am URINE PROTEIN(Less than 20 MG/DL) NEGATIVE MG/DL December 04, 2012 3:40am URINE UROBILINOGEN(0.2-1.0 MG/DL) 0.2 MG/DL December 04, 2012 3:40am URINE NITRITE(NEGATIVE) NEGATIVE December 04, 2012 3:40am LEUKOCYTE ESTERASE ,URINE(NEGATIVE) NEGATIVE December 04, 2012 3:40am URINE CULTURE NOT INDICATED December 04, 2012 3:40am URINE MICROSCOPIC REQUIRED NO December 04, 2012 3:40am COMPLETE METABOLIC PROFILE GLUCOSE(70-110 MG/DL) 207 MG/DL December 04, 2012 2:07am BLOOD UREA NITROGEN(6-20 MG/DL) 10 MG/DL December 04, 2012 2:07am CREATININE(0.50-1.20 MG/DL) 0.55 MG/DL December 04, 2012 2:07am EST GLOMERULAR FILTRATION RATE(Greater than or equal to 60) Greater than or equal to 60 Result Comments: If the patient is of -L[place] descent/extraction multiply the eGFR value by 1.212 to obtain the actual eGFR. >=60 mg/dL Normal 30-59 mg/dL Moderate Kidney Disease 15-29 mg/dL Severe Kidney Disease <15 mg/dL Kidney Failure December 04, 2012 2:07am BUN CREATININE RATIO(10.0-20.0 RATIO) 18.2 RATIO December 04, 2012 2:07am SODIUM(135-145 MMOL/L) 141 MMOL/L December 04, 2012 2:07am POTASSIUM(3.6-5.0 MMOL/L) 3.6 MMOL/L December 04, 2012 2:07am CHLORIDE(101-111 MMOL/L) 104 MMOL/L December 04, 2012 2:07am CO2(21-31 MMOL/L) 23.0 MMOL/L December 04, 2012 2:07am ANION GAP(8-18) 18 December 04, 2012 2:07am OSMO CALCULATED(270.0-290.0) 286.3 December 04, 2012 2:07am CALCIUM(8.5-10.5 MG/DL) 9.1 MG/DL December 04, 2012 2:07am BILIRUBIN,TOTAL(0.1-1.2 MG/DL) 0.2 MG/DL December 04, 2012 2:07am ALKALINE PHOSPHATASE(42-121 U/L) 158 U/L December 04, 2012 2:07am ASPARTATE AMINO TRANSFERASE(10-42 U/L) 35 U/L December 04, 2012 2:07am ALANINE AMINOTRANSFERASE(10-60 U/L) 24 U/L December 04, 2012 2:07am TOTAL PROTEIN(6.4-8.2 G/DL) 7.8 G/DL December 04, 2012 2:07am ALBUMIN(3.5-5.5 G/DL) 4.4 G/DL December 04, 2012 2:07am GLOBULIN(2.4-3.6) 3.4 December 04, 2012 2:07am ALBUMIN/GLOBULIN RATIO(0.9-1.8 RATIO) 1.3 RATIO December 04, 2012 2:07am TOTAL CPK TOTAL CPK(22-269 U/L) 88 U/L December 04, 2012 2:07am CPK MB CPK MB(0.6-6.3 NG/ML) 1.0 NG/ML December 04, 2012 2:07am CARDIAC TROPONIN I CARDIAC TROPONIN I(0.01-0.04 NG/ML) Less than 0.01 NG/ML Result Comments: REFERENCE RANGES: NEGATIVE </=0.04 NG/ML INTERMEDIATE 0.05-0.49 NG/ML POSITIVE >/=0.50 NG/ML December 04, 2012 2:07am LIPASE LIPASE(22-51 U/L) 18 U/L December 04, 2012 1:56am Result Procedures Visit/Account #[id number] (December 04, 2012 12:47am - December 04, 2012 4:08am) Department: DIAGNOSTIC IMAGING [ Report: Diagnostic Imaging Report ] Diagnostic Imaging Report Dictated By: REFUGIO HARRIS MD Signed By: REFUGIO HARRIS MD Method of Transportation: A Pertinent Items in Place: N What ER Room is the patient in?: 02 Currently : N Reason for exam: cp [address] [address] ~Department of Radiology~ Patient: CLARISA HIDALGO Unit/MR#: [id number] : 1965 Age: 47 Sex: F Report#: [id number] Room#: Location: ED Order Dr: AMAIRANI RUTLEDGE DO Tech: Vandana Nash Attn: Dr: Signed DIAGNOSTIC XRAY Dt/Tm of Exam: 12/04/12 0058 Exam Description: CR CHEST 1V Reason for Exam: cp cc: MAURY ESQUIVEL MD, KEIR G DO [facility] ~ PORTABLE CHEST Upright AP portable view of the chest was obtained. The heart and mediastinum are unremarkable. No infiltrate or mass is seen. No pleural fluid or pneumothorax is evident. There is mild elevation of the right diaphragm. Cardiac monitoring leads are in place. IMPRESSION: Mildly elevated right diaphragm. No active process seen in cardiopulmonary system. Job [id number] Transcribed By: SHYANNE 12/04/12 1239 Dictated By: REFUGIO HARRIS MD Signed By: REFUGIO HARRIS MD 12/04/12 1524 Diagnostic Imaging Report Dictated By: REFUGIO HARRIS MD Signed By: REFUGIO HARRIS MD Method of Transportation: A Pertinent Items in Place: N What ER Room is the patient in?: 02 Currently : N Reason for exam: [address] [id number] ~Department of Radiology~ Patient: CLARISA HIDALGO Unit/MR#: [id number] : 1965 Age: 47 Sex: F Report#: [id number] Room#: Location: ED Order Dr: AMAIRANI RUTLEDGE DO Tech: Vandana Nash Attn: Dr: Signed CAT SCAN Dt/Tm of Exam: 12/04/12 0211 Exam Description: CT ABDOMEN PELVIS WITH IV CON Reason for Exam: abd pain cc: MAURY ESQUIVEL MD, KEIR G DO [facility] ~ Axial images through the pelvis were obtained. Intravenous contrast was utilized. Oral contrast was not utilized. Lung bases appear clear. No pleural fluid is evident. No parenchymal lesions seen in the liver. Biliary duct is not dilated. There has been previous cholecystectomy. Liver appears to be mildly enlarged. Spleen is unremarkable. Adrenal glands appear normal. Pancreas appears normal. Kidneys are unremarkable. No stone or obstruction is evident. No periaortic or retroperitoneal adenopathy or mass is seen. There are scattered calcifications noted in aorta and iliac vessels. No free air or free fluid seen in the abdomen or pelvis. There has been previous hysterectomy. There is moderate amount of stool in the colon, greatest in the colon from cecum through splenic flexure. IMPRESSION: 1. Scattered atherosclerotic arterial calcifications. 2. Previously cholecystectomy and hysterectomy. At least mild hepatomegaly. 3. At least moderate amount of stool throughout the colon, most prominent from cecum through splenic flexure. 4. Electronic stimulating device with leads in contact with the anterior aspect of the stomach. Job [id number] Transcribed By: SHYANNE 12/04/12 1233 Dictated By: REFUGIO HARRIS MD Signed By: REFUGIO HARRIS MD 12/04/12 1524 Allergies and Adverse Reactions Allergies and Adverse Reactions Patient Unit Number: [id number] Agent Type Reaction Severity Status Date KETOROLAC TROMETHAMINE Drug Allergy Unknown Unknown Active December 02, 2012 LISINOPRIL Drug Allergy Unknown Unknown Active December 02, 2012 MORPHINE Drug Allergy Unknown Unknown Active December 04, 2012 MEPERIDINE Drug Allergy Unknown Mild Active June 09, 2007 Problem List Problem List Visit/Account #[id number] (December 04, 2012 12:47am - December 04, 2012 4:08am) Active Problems: Code/Condition Comments Documented Start Date Documented Resolved Date 789.00 ABDOMINAL PAIN, UNSPECIFIED SITE December 04, 2012 787.03 VOMITING ALONE December 04, 2012 786.50 CHEST PAIN NOS December 04, 2012 Vital Signs Vital Signs Visit/Account #[id number] (December 04, 2012 12:47am - December 04, 2012 4:08am) Label First Result Last Result 3141-9: Weight Measured 225 lbs December 04, 2012 12:47am 102.895814 kg December 04, 2012 12:47am 8310-5: Body Temperature 98.7 degF December 04, 2012 12:47am 8310-5: Fahrenheit Body Temperature 98.5 [degF] December 04, 2012 4:06am 8480-6: BP Systolic 165/ mmHg December 04, 2012 12:47am 88/ mm[Hg] December 04, 2012 4:06am 8867-4: Heart Rate 85 /min December 04, 2012 12:47am 77 /min December 04, 2012 4:06am 9279-1: Respiratory Rate 16 /min December 04, 2012 12:47am 18 /min December 04, 2012 4:06am Unmapped Query Mnemonic (RESP.SAT) Saturation 94 % December 04, 2012 12:47am 94 % December 04, 2012 12:47am Ordered Medications Ordered Medications Visit/Account #[id number] (December 04, 2012 12:47am - December 04, 2012 4:08am) Medication Dose Route Sig/Schedule Precondition/Indication Comments/ Instructions NDC DILAUDID(HYDROmorphone HCL) 2 MG/ML INJECTION 1 MG IV: INTRAVEN NOW: NOW Rx Order Comments: Order placed as verified: Allergies/Duplicates/Interactions differ from order processing clerk Dose Warnings differ from order processing clerk Label Comments: MAY INCREASE FALL RISK DILAUDID (HYDROmorphone HCL): 49468072302 PHENERGAN INJ(PROMETHazine HCL) 25 MG/ML INJECTION 25 MG .ROUTE: Route .[facility] PHENERGAN INJ (PROMETHazine HCL): [id number] IV Medication Carriers: NORMAL SALINE(SODIUM CHLORIDE) 1000 ML INJECTION 1000 ML IV: INTRAVEN .Q1H (Rate: 1000 MLS/HR Duration: 1 HR) Rx Order Comments: Order placed as verified: Allergies/Duplicates/Interactions differ from order processing clerk Dose Warnings differ from order processing clerk Carriers: NORMAL SALINE (SODIUM CHLORIDE): [id number] PHENERGAN INJ(PROMETHazine HCL) 25 MG/ML INJECTION 25 MG IM: INTRAMUSC NOW: NOW Rx Order Comments: Order placed as verified: Allergies/Duplicates/Interactions differ from order processing clerk Dose Warnings differ from order processing clerk Label Comments: For IV use dilute 1 ml with 9 ml of NS and administer through port furthest away from hand or wrist over at least 1 minute (administration over 10-15 minutes and with free-flowing IV decreases patient risk of tissue damage). MAY INCREASE FALL RISK PHENERGAN INJ (PROMETHazine HCL): [id number] BENADRYL INJ(DiphenhydrAMINE HCL) 50 MG/ML INJECTION 50 MG IM: INTRAMUSC LUDMILA: ONE TIME ORDER Rx Order Comments: Order placed as verified: Allergies/Duplicates/Interactions differ from order processing clerk Dose Warnings differ from order processing clerk Label Comments: MAY INCREASE FALL RISK BENADRYL INJ (DiphenhydrAMINE HCL): [id number] History Of Encounters Encounters Visit/Account #[id number] (December 04, 2012 12:47am - December 04, 2012 4:08am) No reports exist, or have been identified for inclusion with this encounter.
--- OUTSIDE RECORDS SUMMARY | 2016-08-09 22:40 | XMS REPORT | Continuity of Care Document ---
Author Author [facility] Organization [facility] Address Unknown Phone Unavailable Care Team Providers Care Key Worker Name Role Phone Emily López PP [phone] Insurance Providers Payer Name Policy Type Covered Alliance Party Covered Alliance Party Id Relationship Subscriber Subscriber Id DAVIS [id number] BRYANNA HIDALGO [id number] [facility] [id number] SELF / SAME PATIENT CLARISA HIDALGO [id number] Advance Directives Directive Response Recorded Date/Time Type: Living Will 02/09/09 2:20am Problems Medical Problem Onset Date Abdominal pain Chest pain Chronic abdominal pain Diabetic gastroparesis Frontal headache Headache Social History History Response Recorded Date/Time 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, [employer] 02/09/09 2:20am Exposure to Occupational hazards: N 02/09 2:20am Allergies, Adverse Reactions, Alerts Allergen Type Severity Reaction Last Updated Ketorolac Allergy Unknown 12/01/12 Meperidine Allergy Unknown 12/01/12 Lisinopril Allergy Unknown 12/01/12 Medications Medication Dose Route Sig Days/Qty REGLAN 10MG10 MG/TAB (Metoclopramide) 10 MG PO BID PRILOSEC 20MG20 MG (Omeprazole) 20 MG PO QD KEPPRA [id number] MG (levETIRAcetam) 750 MG PO BID CARDURA 2MG2 MG (Doxazosin) 1 MG PO BID LOPRESSOR 550 MG/TAB (Metoprolol Tartrate) 50 MG PO BID ZYRTEC 10MG (3) 10 DAILY ROBSJQA50 MG (Atorvastatin) 20 MG PO HS [id number] MG/CAP (Gabapentin) 400 MG PO QID EFFEXOR-XR150 MG (Venlafaxine XR) 150 MG PO DAILY NOVLOG (Insulin Aspart) 4 U SC Q 1HR SYNTHROID0.125 MG/T (Levothyroxine) 0.125 MG PO DAILY ANAFRANIL 25MG25 MG (clomiPRAMINE) 75 MG PO HS [id number] MG (Topiramate) 200 MG PO QD Vital [...] 11/01/12 7:14am 100.0 Weight(lbs) 11/01/12 7:14am 220.0 Results Test Date Result Interp. Ref. [...] 0-3 /hpf 0 - 3 Urine Specific Muse 12/01/12 1.010 1.001 - 1.035 Urine Total Volume 12/01/12 12 mL - Urine Urobilinogen 12/01/12 NORMAL NORMAL - Urine WBC 12/01/12 4-8 /hpf H 0 - 3 Urine pH 12/01/12 7.0 5.0 - 8.0 Procedures Procedure Code Date UPPER GI ENDOSCOPY, BIOPSY 55153 Encounters Encounter Location Date/Time [facility] 12/01/12 9:30am [facility] 11/13/12 5:18am [facility] 11/10/12 9:38pm [facility] 11/10/12 8:53am [facility] 11/09/12 10:20pm [facility] 11/01/12 10:10am
--- OUTSIDE RECORDS SUMMARY | 2016-08-09 22:40 | XMS REPORT ---
Author [facility] Organization Unknown Address Unknown Phone Unavailable Care Team Providers Care Digital Associate Name Role Phone UNASSIGNED DOCTOR , DOCTOR PP [phone] Reason For Visit Reason for Visit from 01/24/2014 2:12 PM:* Pt Stated Reason for Adm : Pt has been having suicidal thoughts Chief Complaint MOOD D/O NOS Social History Social History from 01/27/2014 1:36 PM:* Tobacco Use? : Never Smoker Social History from 01/24/2014 2:12 PM:* Tobacco Use? : Never Smoker Functional Status Functional Status from 01/27/2014 9:51 AM:* LOC : Alert * Oriented To : Person,Place,Time,Event * Weight Bearing Status : Full * Assist Level : Independent * # Assists : Independent Functional Status from 01/26/2014 8:00 PM:* LOC : Alert * Oriented To : Person,Place,Time,Event * Weight Bearing Status : Full * Assist Level : Independent * # Assists : Independent Functional Status from 01/26/2014 7:45 AM:* LOC : Alert * Oriented To : Person,Place,Time * Weight Bearing Status : Full * Assist Level : Independent * # Assists : Independent Functional Status from 01/26/2014 12:05 AM:* LOC : Resting quietly, eyes closed * Oriented To : Resting quietly,eyes closed * Weight Bearing Status : Full * Assist Level : Independent * # Assists : Independent Functional Status from 01/25/2014 8:15 PM:* LOC : Alert * Oriented To : Person,Place,Time,Event * Weight Bearing Status : Full * Assist Level : Independent * # Assists : Independent Functional Status from 01/25/2014 8:29 AM:* LOC : Alert * Oriented To : Person,Place,Time * Weight Bearing Status : Full * Assist Level : Independent * # Assists : Independent Functional Status from 01/24/2014 9:15 PM:* LOC : Alert * Oriented To : Person,Place,Time,Event * Weight Bearing Status : Full * Assist Level : Independent * # Assists : Independent Functional Status from 01/24/2014 2:12 PM:* LOC : Alert * Oriented To : Person,Place,Time,Event * Weight Bearing Status : Full * Assist Level : Independent * # Assists : Independent Vital Signs Hospital Vital Signs from 01/27/2014 5:55 AM:* Weight : 95.0/ kg * Height : 5/1 ft,in * Temperature : 97.9 F * Pulse : 80 * Respirations : 20 * BP : 120/77 Hospital Vital Signs from 01/25/2014 7:32 AM:* Weight : 97.4/ kg * Height : 5/1 ft,in Hospital Vital Signs from 01/25/2014 6:12 AM:* Weight : 97.4/ kg * Height : 5/1 ft,in * Temperature : 98.2 F * Pulse : 77 * Respirations : 20 * BP : 135/67 Hospital Vital Signs from 01/24/2014 9:31 PM:* Height : 5/1 ft,in * Temperature : 98.1 F * Pulse : 91 * Respirations : 20 * BP : 145/74 Hospital Vital Signs from 01/24/2014 2:12 PM:* Weight : 96.6/ kg * Height : 5/1 ft,in Hospital Vital Signs from 01/24/2014 1:50 PM:* Weight : 96.6/ kg * Height : 5/1 ft,in * Temperature : 97.4 F * Pulse : 95 * Respirations : 18 * BP : 143/83 Results Chemistry from 01/25/2014 6:43 AMGLUCOSE (FASTING) 345 MG/DL H (65-99 MG/DL) Problems Encounter Diagnosis No relevant problems exist. Encounters Encounter Diagnosis No relevant problems exist. Plan of Care Follow-up Appointments from 01/27/2014 1:36 PM:* #1 Office appointment: : Randell Perales * #1 Date/Time : 02/03/2014 1:00 PM * Address # 1 : [facility] [phone] * #2 Office appointment: : Viola Weathers * #2 Date/Time : 03/13/2014 1:25 PM * Address # 2 : [facility] [phone] Procedures No relevant procedures performed. Immunizations No immunizations administered or ordered. Hospital Course Hospital Discharge Instructions How to care for yourself at home from 01/27/2014 1:36 PM:* Discharge Activity : Activity as tolerated,May Shower * Discharge Diet : As before hospitalization * Call your doctor if: : Fever over 101 F or severe chills,Chest pain or other unexplained symptoms,Tingling or numbness develops,A sudden increase or decrease in weight,You have persistent or worsening symptoms,If you have Heart Failure and you gain 3 pounds within 1 week or your symptoms worsen. (Weigh at home tomorrow morning) Allergies, Adverse Reactions, Alerts * Demerol causes unspecified. * lisinopril causes unspecified. * No Latex Allergy. * No IV Contrast Allergy. * No Known Food Allergies. Medication It is the responsibility of the patient or patient pharmacy services representative to confirm the list of medications with either the patient's personal care provider or the patient's follow-up care provider to ensure the patient has an appropriate list of medications to take at home. Discharge medications New medications* cetirizine 10 mg Tablet, Ordered By: JOSH TRUJILLO, PAC Directions: 1 tablet oral daily for ALLERGIES * escitalopram 20 mg Tablet, Ordered By: JOSH TRUJILLO, PAC Directions: 1 tablet oral daily for depression Additional Instructions: . * hydrOXYzine HCl 50 mg Tablet, Ordered By: JOSH TRUJILLO, PAC Directions: 1 tablet oral three times a day PRN ANXIETY * terbinafine 1 % Cream, Ordered By: JOSH TRUJILLO, PAC Directions: 1 application topical daily Additional Instructions: APPLY TO TOES. * pregabalin (Lyrica) 25 mg Capsule, Ordered By: JOSH TRUJILLO, PAC Directions: 1 capsule oral daily at bedtime PRN NEUROPATHY * lurasidone (Latuda) 40 mg Tablet, Ordered By: JOSH TRUJILLO, PAC Directions: 1 tablet oral daily with breakfast for bipolar Additional Instructions: GIVE 1ST DOSE WITH SNACK Continued medications* acetaminophen (Tylenol) 325 mg Tablet, Ordered By: JOSH TRUJILLO, PAC Directions: 2 tablet oral every six hours PRN pain * atorvastatin (Lipitor) 40 mg Tablet, Ordered By: JOSH TRUJILLO, PAC Directions: 1 tablet oral daily for HLP * levetiracetam 750 mg Tablet, Ordered By: JOSH TRUJILLO, PAC Directions: 1 tablet oral twice a day for seizures Additional Instructions: DO NOT CHEW, BREAK, OR CRUSH * LORazepam 1 mg Tablet, Ordered By: ILIANA DUBOIS Directions: 1 tablet oral three times a day * metoclopramide HCl 10 mg Tablet, Ordered By: JOSH TRUJILLO PAC Directions: 1 tablet oral three times a day before meals for gastroporesis * omeprazole (PriLOSEC) 40 mg capsule,delayed release(DR/EC), Ordered By: JOSH TRUJILLO PAC Directions: 1 capsule oral daily for Reflux * topiramate (ToPAMax) 200 mg Tablet, Ordered By: JOSH TRUJILLO PAC Directions: 1 tablet oral daily every morning * traMADol 50 mg Tablet, Ordered By: JOSH TRUJILLO PAC Directions: 1 tablet oral every four to six hours PRN pain Changed medications* doxazosin 1 mg Tablet, Ordered By: ILIANA DUBOIS Directions: 1 tablet oral daily every morning for BLOOD PRESSURE * doxazosin 1 mg Tablet, Ordered By: ILIANA DUBOIS Directions: 2 tablet oral daily at bedtime Additional Instructions: TOTAL 3 MG DAILY * levothyroxine (Synthroid) 125 mcg Tablet, Ordered By: ILIANA DUBOIS Directions: 1 tablet oral daily for hypothyroid * metoprolol ta-hydrochlorothiaz (Lopressor HCT) 50 mg-25 mg Tablet, Ordered By : ILIANA DUBOIS Directions: 1 tablet oral twice a day Stopped medications* cetirizine (ZyrTEC) 10 mg Tablet Directions: 1 tablet oral daily for allergies * insulin aspart 100 unit/mL Directions: 5 unit insulin pump every hour * risperidone (RisPERDal) 0.5 mg Tablet Directions: 1 tablet oral daily * carBAMazepine 600 mg Directions: oral twice a day at bedtime * clomiPRAMINE (Anafranil) 75 mg Capsule Directions: oral daily at bedtime for Bipolar * promethazine (Phenergan) 25 mg Directions: per rectum every four hours for nausea or vomiting * venlafaxine (Effexor XR) 150 mg capsule,extended release 24hr Directions: 1 capsule oral daily
--- OUTSIDE RECORDS SUMMARY | 2016-08-09 22:40 | XMS REPORT | Continuity of Care Document ---
Author Author [facility] Organization [facility] Address Unknown Phone Unavailable Care Team Providers Care Clinical Research Tech Name Role Phone Emily López PP [phone] Insurance Providers Payer Name Policy Type Covered Democrat Covered Democrat Id Relationship Subscriber Subscriber Id DAVIS [id number] BRYANNA HIDALGO [id number] [facility] [id number] SELF / SAME PATIENT CLARISA HIDALGO [id number] Advance Directives Directive Response Recorded Date/Time Type: Living Will 02/09/09 2:20am Problems Medical Problem Onset Date Abdominal pain Chest pain Chronic abdominal pain Diabetic gastroparesis Frontal headache Headache Social History History Response Recorded Date/Time 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, 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 02/09/09 2:20am Exposure to Occupational hazards: N 02/09 2:20am Allergies, Adverse Reactions, Alerts Allergen Type Severity Reaction Last Updated Ketorolac Allergy Unknown 11/10/12 Meperidine Allergy Unknown 11/10/12 Lisinopril Allergy Unknown 11/10/12 Medications Medication Dose Route Sig Days/Qty REGLAN 10MG10 MG/TAB (Metoclopramide) 10 MG PO BID PRILOSEC 20MG20 MG (Omeprazole) 20 MG PO QD KEPPRA [id number] MG (levETIRAcetam) 750 MG PO BID CARDURA 2MG2 MG (Doxazosin) 1 MG PO BID LOPRESSOR 550 MG/TAB (Metoprolol Tartrate) 50 MG PO BID ZYRTEC 10MG (3) 10 DAILY TQCHCJV46 MG (Atorvastatin) 20 MG PO HS MCPUGIIYS400 MG/CAP (Gabapentin) 400 MG PO QID EFFEXOR-XR150 MG (Venlafaxine XR) 150 MG PO DAILY NOVLOG (Insulin Aspart) 4 U SC Q 1HR SYNTHROID0.125 MG/T (Levothyroxine) 0.125 MG PO DAILY TEGRETOL-XR400 MG (carBAMazepine ER) 600 MG PO HS ANAFRANIL 25MG25 MG (clomiPRAMINE) 75 MG PO HS [id number] MG (Topiramate) 200 MG PO QD PHENERGAN 25 TA25 MG (Promethazine) 1 TAB PO Q6-8 HR PRN #10 Vital Signs Vital Reading Collection Date/Time Result Blood Pressure 11/10/12 9:37pm 141/76 Ortho 11/10/12 [...] 0 - 2.0 Partial Thromboplastin Time - [place] 08/23/08 23.9 SECONDS 18.0 - 35.0 Prothrombin [...] 0-3 /hpf 0 - 3 Urine Specific [place] 11/01/12 1.030 1.001 - 1.035 Urine Total [...] Procedure Code Date UPPER GI ENDOSCOPY, BIOPSY 90406 Encounters Encounter Location Date/Time Departed [facility] 11/10/12 9:38pm Departed [facility] 11/10/12 8:53am Departed [facility] 11/09/12 10:20pm Departed [facility] 11/01/12 10:10am Registered [facility] 10/31/12 1:44am Departed [facility] 10/29/12 5:10am Departed [facility] 10/27/12 6:55am
--- NOTE | 2016-08-09 22:44 | ERPDOC ---
Departure Disposition Decision Date: Aug 10, 2016 Disposition Decision Time: 00:06 Disposition: 01 DISCHARGED HOME, SELF-CARE Impression Impression Impression: Primary Impression: Headache Headache type: tension-type Headache chronicity pattern: acute headache Intractability: not intractable Qualified Codes: G44.209 - Tension-type headache, unspecified, not intractable Additional Impression: Chest tightness or pressure Severity: Moderate Condition: Stable Seen By: Mid-level only Patient Instructions: Acute Headache (ED), Chest Pain (ED) Problems/Meds/Labs Reviewed?: Yes Medications reviewed and manag: Yes Additional Instructions: Your labs today including CBC, BMP, and troponin are normal. CT of her head is normal as well. Chest xray is clear. If any other issues/concerns then please follow up with a primary care provider or return to ER. Follow up care ordered?: Yes Mental Status: Alert HPI - Chest Pain General Chief Complaint: Headache Stated Complaint: CHEST PAIN AND HEADACHE Time Seen by Provider: 22:33 Source: patient Exam Limitations: no limitations HPI - Chest Pain Initial Comments She is a resident out at [place] where she is being evaluated for hallucinations. She was watching basketball in her room and had onset of headache on the right side of her head with sensation of a "popping". She has had a headache since then. Also had radiation of pain into her chest and arms. Does have a history of CVA and traumatic brain injury. Is having nausea. EMS has given her Zofran as well as Fentanyl with no relief of pain or nausea. She is diabetic. Denies any fever or chills. Is alert and oriented and answering questions appropriately. Occurred At: home Onset/Timing: Rapid Duration: 1 hr Activities at Onset/Context: none Location: substernal Associated Symptoms: headache, nausea/vomiting (nausea), DENIES: abdominal pain , back pain, diaphoresis, dizziness, edema, fast HR, fatigue, fever/chills, heartburn, irregular HR, rash, shortness of breath, slow HR, swelling/lump in chest, syncope, weakness Chest Pain Radiation: arms Nitro Today/Relief: no nitro taken today Aspirin Treatment Today: unknown Hx of Similar Symptoms: No Allergies: Coded Allergies: ketorolac (Verified Allergy, Unknown, 08/09/16) lisinopril (Verified Allergy, Unknown, 08/09/16) meperidine (Verified Allergy, Unknown, 08/09/16) Past History Patient Surgical History Abdominal defibrillatory Past Medical History Metabolic: diabetes, hypercholesterolemia, hypertension, hypothyroidism Respiratory: COPD Neurological: CVA, seizures Psychological: anxiety, depression Family History Family History: Negative Social History Smoking Status: Current every day smoker Substance Use Type: does not use Alcohol Intake: none Review of Systems Constitutional Constitutional: DENIES: chills, dizziness, fatigue, fever, weakness Eyes Vision: DENIES: blurring, double vision ENMT Ears: DENIES: drainage, pain Sinuses: DENIES: congestion, rhinorrhea Mouth/Throat: DENIES: painful swallowing, scratchy throat, sore throat Cardiovascular Cardiac: chest pain, DENIES: dyspnea on exertion, orthopnea Rhythm/Rate: DENIES: irregular beat, palpitations Vascular: DENIES: pedal edema, unilateral swelling Pulmonary Respiratory: DENIES: cough, dyspnea, sputum, tachypnea GI Upper Abdomen: nausea, DENIES: pain, vomiting Lower Abdomen: DENIES: constipation, diarrhea, pain Integumentary Skin: DENIES: rash Neurological General: headache, numbness, DENIES: tingling, weakness Physical Exam General General Nourishment: well nourished, well developed, appears stated age, no acute distress, adult General Body Habitus: well groomed Vitals and Pain First Documented Vital Signs Date Time Temp Pulse Resp B/P Pulse Ox O2 Delivery O2 Flow Rate FiO2 08/09/16 22:31 98.3 70 20 182/94 95 Room Air Weight: Kilograms: Height (feet): Height (inches): Triage Pain Scale: RN VS reviewed by Provider: Yes Normal Exams: ENMT: No facial trauma, nasal exudates, pharyngeal erythema, or exudates are noted Neck: Full range of motion, without adenopathy, JVD, bruits or thyromegaly Chest/Resp: Clear all tapia, with good airflow, and symmetry bilaterally CV: Regular rate and rhythm, without murmur or gallop, Pulses 2+ all extremities, capillary refill, <2 seconds all ext., no pedal edema noted Abdomen: Bowel sounds positive, soft, non-tender, non-distended, no hepatosplenomegaly, masses or bruits noted Lymphatic: No lymphadenopathy, or lymphedema noted Integumentary: No rashes, hives, or bruising noted Neurologic: Patient is alert, and oriented, cranial nerves, motor/sensory/ cerebellar, exams w/o gross deficits, to observation Psychiatric: Patient exhibits, appropriate attention, emotion and affect Differential Diagnoses Considering: Acute MN, Anxiety/Panic, Costochondritis, Esophageal Spasm, GERD, Muscle Spasm, Other (Migraine, tension headache, ICH) Progress Results/Orders Orders Procedure Category Date Status Time EKG EKG 08/09/16 Logged Chest 1 View RAD 08/09/16 Taken Cbc W/Auto LAB 08/09/16 Complete Diff-Reflex Manual Bmp - Basic Metabolic LAB 08/09/16 Complete Panel Iv Lock (Ed Only) EDM 08/09/16 Transmitted 22:38 Troponin I W LAB 08/09/16 Complete Hemolysis Index Prochlorperazine PHA 08/09/16 Complete (Compazine) 22:45 Morphine Sulfate PHA 08/09/16 Complete (Morphine) 23:00 Ct Head W/O Contrast CT 08/09/16 Taken Orphenadrine (Norflex) PHA 08/10/16 In Process 00:30 Lab Results Laboratory Tests Test 08/09/16 23:27 White Blood Count 12.5T/MM3 Red Blood Count 4.03M/MM3 Hemoglobin 11.5GM/DL Hematocrit 35.0% Mean Corpuscular Volume 86.8UM3 Mean Corpuscular Hemoglobin 28.5UUG Mean Corpuscular Hemoglobin Concent 32.9GM/DL RDW Standard Deviation 43.5FL Platelet Count 188T/MM3 Mean Platelet Volume 9.8UM3 Immature Granulocyte % (Auto) 0.3% Neutrophils (%) (Auto) 64.0% Lymphocytes (%) (Auto) 30.0% Monocytes (%) (Auto) 4.4% Eosinophils (%) (Auto) 1.1% Basophils (%) (Auto) 0.2% Absolute Immature Granulocyte (auto 0.04T/MM3 Absolute Neutrophils (auto) 8.0T/MM3 Absolute Lymphocytes (auto) 3.7T/MM3 Absolute Monocytes (auto) 0.6T/MM3 Absolute Eosinophils (auto) 0.1T/MM3 Absolute Basophils (auto) 0.0T/MM3 Turbidity < 20 Sodium Level 146MEQ/L Potassium Level 3.7MEQ/L Chloride Level 106MEQ/L Carbon Dioxide Level 24MEQ/L Anion Gap 16MEQ/L Blood Urea Nitrogen 16.0MG/DL Creatinine 0.7MG/DL Glomerular Filtration Rate Calc 89 BUN/Creatinine Ratio 23RATIO Glucose Level 57MG/DL Calculated Osmolality 280MOSM/KG Calcium Level 9.3MG/DL Icterus Index < 2 Troponin I < 0.012ng/ml Chemistry Specimen Hemolysis < 15 Medications Current ED Medications Prochlorperazine Edisylate (Compazine) 10 mg O ONCE IV Last administered on 23:17; Start 08/09/16 at 22:45; Stop 08/09/16 at 22:46; Status DC Morphine Sulfate (Morphine) 4 mg O ONCE IV Last administered on 08/09/16 23:18 ; Start 08/09/16 at 23:00; Stop 08/09/16 at 23:01; Status DC Orphenadrine Citrate (Norflex) 60 mg O ONCE IV Last administered on 08/10/16 00:22; Start 08/10/16 at 00:30; Stop 08/10/16 at 00:31 Progress Progress CBC, BMP, and troponin today are normal. CT of her head is negative as well as chest xray. She does have some relief of pain from the Morphine given but continues to c/o some headache pain. Norflex given IV x1. Will go ahead and let her go back to [place] today. Have her follow up with primary care provider if any further issues/concerns. Xray Xray : Reason for Exam: Chest pain Xray: CXR Portable Interpretation: Normal CT CT : Reason for Exam: sudden onset headache CT: Head no contrast Interpretation: Normal JAZMIN RODRIGUEZ APRN Aug 09, 2016 22:43
[2016-08-09] MEDS ORDERED: PROCHLORPERAZINE 10mg/2ml INJECTION IV ONE (22:45)
--- OUTSIDE RECORDS SUMMARY | 2016-08-09 22:46 | XMS REPORT ---
Author Author [facility] Organization Unknown Address Unknown Phone Unavailable Care Team Providers Care Food General Manager Name Role Phone UNASSIGNED DOCTOR , DOCTOR PP [phone] Reason For Visit Reason for Visit from [...] 1:00 PM * Address # 1 : [facility] [phone] * #2 Office appointment: : Viola Weathers * #2 Date/Time : 03/13/2014 1:25 PM * Address # 2 : [facility] [phone] Procedures No relevant procedures performed. Immunizations No [...] the responsibility of the patient or patient patient registration representative to confirm the list of medications [...]
[2016-08-09] MEDS ORDERED: MORPHINE SULFATE 4 MG SYRINGE IV ONE (23:00)
[2016-08-09] MEDS ORDERED: ASPI81TA2 PO (23:02)
[2016-08-09] MEDS ORDERED: GABA-354 PO (23:02)
[2016-08-09] MEDS ORDERED: METO-482 PO (23:02)
[2016-08-09] MEDS ORDERED: LEVE1000 PO (23:02)
[2016-08-09] MEDS ORDERED: FURO-154 PO (23:02)
[2016-08-09] MEDS ORDERED: POTA20TA10 PO (23:02)
[2016-08-09] MEDS ORDERED: DOXA1TAB2 PO (23:02)
[2016-08-09] MEDS ORDERED: ATOR80TA PO (23:02)
[2016-08-09] MEDS ORDERED: LAMO100T PO (23:09)
[2016-08-09] MEDS ORDERED: MAGN400T6 PO (23:09)
[2016-08-09] MEDS ORDERED: METO-230 PO (23:09)
[2016-08-09] MEDS ORDERED: TOPI50TA PO (23:09)
[2016-08-09] MEDS ORDERED: DULO30CA2 PO (23:09)
[2016-08-09] MEDS ORDERED: CETI-273 PO (23:09)
[2016-08-09] MEDS ORDERED: LEVO125T4 PO (23:09)
[2016-08-09] MEDS ORDERED: PANT40TA PO (23:09)
[2016-08-09 23:34] LABS: BASOPHILS % (AUTO) 0.2 % (0-2); EOSINOPHILS # (AUTO) 0.1 T/MM3 (0-0.5); EOSINOPHILS % (AUTO) 1.1 % (0-4); HGB - HEMOGLOBIN 11.5 GM/DL (12-16); IMMATURE GRANULOCYTE # (AUTO) 0.04 T/MM3 (0.00-0.03); IMMATURE GRANULOCYTE % (AUTO) 0.3 % (0.0-0.5); LYMPHOCYTES # (AUTO) 3.7 T/MM3 (1-4.8); MEAN CORPUSCULAR HGB 28.5 UUG (26-34); MEAN CORPUSCULAR HGB CONC(MCHC 32.9 GM/DL (31-37); MEAN CORPUSCULAR VOLUME 86.8 UM3 (80-100); MEAN PLATELET VOLUME 9.8 UM3 (9.4-12.4); MONOCYTES # (AUTO) 0.6 T/MM3 (0-0.8); MONOCYTES % (AUTO) 4.4 % (0-9.0); RED BLOOD COUNT 4.03 M/MM3 (4.00-5.20); WBC - WHITE BLOOD COUNT 12.5 T/MM3 (4.5-11.0)
[2016-08-09 23:44] LABS: ANION GAP 16 MEQ/L (5-15); BUN/CREATININE RATIO 23 RATIO (6-26); CALCIUM 9.3 MG/DL (8.4-10.2); CHLORIDE 106 MEQ/L (98-107); CO2 - CARBON DIOXIDE 24 MEQ/L (22-30); CREATININE 0.7 MG/DL (0.7-1.2); GLOMERULAR FILTRATION RATE 89; GLUCOSE 57 MG/DL (65-110); POTASSIUM 3.7 MEQ/L (3.6-5); SODIUM 146 MEQ/L (134-144)
[2016-08-10] MEDS ORDERED: ORPHENADRINE 60mg/2ml INJECTION IV ONE (00:30)
[2016-08-10 00:40] VITALS: BP 160/86; PULSE 65; RESP 16; TEMP 97.6; O2SAT 96
--- NOTE | 2016-08-10 00:40 | NUR ---
DEPART PT GIVEN DI FOR CHEST PAIN AND ACUTE HEADACHE. [facility] WHERE PT CAME FROM - [facility]. PT VERBALIZES UNDERSTANDING OF DI. QUESTIONS ASKED/ANSWERED. DENIES FURTHER QUESTIONS/NEEDS. PERSONAL BELONGINGS GATHERED. IV SITE REMOVED. [facility] PER DIRECTION OF [facility]. PT AMBULATED TO AMBULANCE - GAIT STABLE, NO SIGN OF DISTRESS, EMS AT SIDE.
--- NOTE | 2016-08-10 08:23 | DI ---
Indication: ITS.REASON: chest pain PROCEDURE: CHEST 1 VIEW: Encounter: Initial Comparison: None FINDINGS: The lungs are clear. There is no abnormal airspace opacity, pleural effusion or pneumothorax identified. The heart size, pulmonary vasculature and mediastinum are within normal limits. No significant skeletal abnormality is seen. IMPRESSION: No acute cardiopulmonary abnormality. .
--- NOTE | 2016-08-10 08:23 | DI ---
Indication: ITS.REASON: HEADACHE, SUDDEN ONSET-SEVERE PROCEDURE: CT HEAD W/O CONTRAST: Encounter: Initial Comparison: None Technique: Axial CT images through the head were performed without contrast. Iterative Reconstruction dose reducing technique was utilized. FINDINGS: The ventricles are of normal size, shape, and contour for the patient's age. The brainstem, cerebellum, and cerebral hemispheres have a normal morphology and CT attenuation. There is no evidence of midline displacement. No hemorrhage, signs of acute territorial stroke, mass effect, mass lesions, or edema is evident. The visualized portions of the skull base, midface, and calvarium demonstrate no abnormality. The paranasal sinuses are well aerated and free of significant disease. The tympanic and mastoid cavities appear normal. IMPRESSION: No acute intracranial abnormality or hemorrhage. There is a preliminary report by [facility]. .
== END 2016-08-10 00:40 | disposition home or self-care (01) ==
LOC: ED 22:31
DX: G44.209 Tension-type headache, unspecified, not intractable (principal); R07.89 Other chest pain; R11.0 Nausea
CPT/HCPCS: 36415; 80048; 84484; 85025; 93005